=== PATIENT | female | born 1955 ===

== ENCOUNTER 2024-11-12 14:01 | Outpatient (REF) | payer SELFPAY ==
[2024-11-12 14:07] LABS: MANUAL DIFF FLAG NO
--- OUTSIDE RECORDS SUMMARY | 2024-11-12 14:09 | XMS_ITS | Encounter Summary ---
Author Organization [employer] Address [address] [facility] 7 [place] [address] Care Team Providers Care Inspector Balance Truing Name Role Phone Mag Short DO Primary Care Provider [phone] Reason for Referral * Home Health (Routine) - Closed Specialty Diagnoses / Procedures Referred By Francisca carr Referred To Contact Home Health Services Diagnoses Type 2 diabetes mellitus with diabetic polyneuropathy, without long-term current use of insulin (CMS/HCC) Proliferative diabetic retinopathy associated with type 2 diabetes mellitus, unspecified laterality, unspecified proliferative retinopathy type (CMS/HCC) Peripheral edema Chronic combined systolic and diastolic heart failure (CMS/HCC) Generalized weakness Hyperlipidemia, unspecified hyperlipidemia type Abnormality of gait and mobility Mag Short DO [address] [place] [address] Phone: tel: fax: Referral ID Status Reason Start Date Expiration Date V isits Requested Visits Authorized [id number] Closed Specialty Services Required 10/27/2024 10/27/[phone] Reason for Visit * Reason Comments Follow-up Encounter Details Date Type Department Care Team (Latest Contact Info) Description 10/27/2024 2:45 PM EST Telemedicine [facility] MEDICAL [address] [place] [address] Mag Short DO [address] [place] [address] Type 2 diabetes mellitus with diabetic polyneuropathy, without long-term current use of insulin (CMS/HCC) (Primary Dx); Proliferative diabetic retinopathy associated with type 2 diabetes mellitus, unspecified laterality, unspecified proliferative retinopathy type (CMS/HCC); Peripheral edema; Chronic combined systolic and diastolic heart failure ([facility]); Generalized weakness; B12 deficiency; Hyperlipidemia, unspecified hyperlipidemia type; Abnormality of gait and mobility; Nonintractable episodic headache, unspecified headache type; Polyneuropathy associated with underlying disease ([facility]); Paroxysmal atrial fibrillation ([facility]); Obesity, morbid ([facility]); Stage 3 chronic kidney disease, unspecified whether stage 3a or 3b CKD ([facility]) Social History Tobacco Use Types Packs/Day Years Used Date Smoking Tobacco: Former Cigarettes Passive Smoke Exposure: Never Smokeless Tobacco: Never Alcohol Use Standard Drinks/Week Comments Never 0 (1 standard drink = 0.6 oz pur e alcohol) Alcohol Answer Date Recorded How often do you have a drink containing alcohol ? 0 10/25/2023 How many drinks containing a lcohol do you have on a typical day when you are drinking? 0 10/25/2023 How often do you have six or more drinks on one occasion? 0 10/25/2023 Depression Answer Date Recorded Patient Health Questionnaire-9 Score 20 04/27/2024 Patient Health Questionnaire-9 Score 20 04/27/2024 Last PHQ-9: Questionnaire Data Not on file 0 04/27/2024 Housing Stability Answer Date Recorded What is your housing situation today? I have tone ramos 07/27/[address] you li ve. Do you have problems with any of the following? None of the above 07/27/2023 Food Insecurity Answer Date Recorded Within the past 12 months, y ou worried that your food would run out before you got money to buy more: Never True 07/27/2023 Within the past 12 months,th e food you bought just didn't last and you didn't have enough money to get more: Never True Transportation Answer Date Recorded In the past 12 months, has l ack of transportation kept you from medical appts, meetings, work or from getting things needed for daily living? No 07/27/2023 Intimate Partner Violence Answer Date R ecorded Within the last year, have y ou been afraid of your partner or ex-partner? 2 10/25/2023 Within the last year, have y ou been humiliated or emotionally abused in other ways by your partner or ex-partner? 2 Within the last year, have y ou been kicked, hit, slapped, or otherwise physically hurt by your partner or ex-partner? 2 10/25/2023 Within the last year, have y ou been raped or forced to have any kind of sexual activity by your partner or ex-partner? 2 10/25/2023 Utilities Answer Date Recorded In the past 12 months, has t he electric, gas, oil or water company threatened to shut off services in your home? No 07/27/2023 Depression Answer Date Recorded Patient Health Questionnaire-2 Score 5 04/27/2024 Comments Unknown Sex and Gender Information Value Date Recorded Sex Assigned at Female 06/10/2023 11:25 AM EDT Legal Sex Female 11:20 AM EDT Gender Identity Female 06/10/2023 11:25 AM EDT Sexual Orientation Straight 06/10/2023 11 :25 AM EDT documented as of this encounter Progress Notes * Mag Short DO - 10/27/2024 2:45 PM EST 10/27/24 Mila Aviles [id number] Patient Consents to Telehealth visit by: audio Pt advised of provider's credentials. Pt confirms they are located in [place] and are aware of HIPPA considerations. HPI: Mila Aviles is a 68 y.o. female here today by telehealth for Follow-up. Vomiting and Nausea - Vomiting for about two weeks, preceded by nausea - No fever or abdominal pain - felt unwell but did not vomit - Eating inconsistently due to fear of falling Fatigue and Weakness - Extremely tired and weak - No energy, feels tired for a long time - Feels like she just lays around all day and can't do anything - Afraid to go out due to fear of falling, has fallen a couple of times Breathing Difficulties - Difficulty breathing, especially when lying down - Awaiting CPAP, ordered over a year ago, with a follow-up scheduled for November 17 - Two sleep studies confirmed OG with the need for CPAP - Cough with foam production - Crackly sound in throat Headaches - Headaches have returned, previously frequent - Located on the back of the head, now more on the temples and forehead - Lasts quite a while - Associated with stuffy nose and sinus-like symptoms - Occurs a few times a week, approximately three days a week B12 Deficiency - History of B12 deficiency, unsure of current status - Body does not absorb B12 well Swelling - Swelling in one foot, leading to increased furosemide dosage to 40 mg a couple of weeks ago Social history - and son provide assistance with daily activities - Does not go out due to fear of falling Review of Symptoms: ROS negative except as noted in HPI Physical Exam: Physical Exam Neurological: Mental Status: She is alert and oriented to person, place, and time. Psychiatric: Speech: Speech normal. PERTINENT LABORATORY DATA: reviewed PERTINENT IMAGING: Reviewed ASSESSMENT AND PLAN Diagnosis Plan 1. Type 2 diabetes mellitus with diabetic polyneuropathy, without long-term current use of insulin ([facility]) Hemoglobin A1c Lipid Panel, Standard Hemoglobin A1c Lipid Panel, Standard Referral to Home Health Referral to Home Health 2. Proliferative diabetic retinopathy associated with type 2 diabetes mellitus, unspecified laterality, unspecified proliferative retinopathy type ([facility]) Referral to Home Health Referral to Home Health 3. Peripheral edema TSH with Reflex to Free T4 [[id number]] TSH with Reflex to Free T4 [132643] Referral to Home Health Referral to Home Health 4. Chronic combined systolic and diastolic heart failure ([facility]) B Type Natriuretic Peptide (BNP)107323 B Type Natriuretic Peptide (BNP) 066939 Referral to Home Health Referral to Home Health 5. Generalized weakness Referral to Home Health Referral to Home Health 6. B12 deficiency Vitamin B12 147539 Vitamin B12 269418 7. Hyperlipidemia, unspecified hyperlipidemia type Referral to Home Health Referral to Home Health 8. Abnormality of gait and mobility Referral to Home Health Referral to Home Health 9. Nonintractable episodic headache, unspecified headache type Sed Rate by Modified Westergren Sed Rate by Modified Westergren 10. Polyneuropathy associated with underlying disease ([facility]) 11. Paroxysmal atrial fibrillation ([facility]) 12. Obesity, morbid ([facility]) 13. Stage 3 chronic kidney disease, unspecified whether stage 3a or 3b CKD ([facility]) Assessment - Chronic dyspnea, likely related to sleep apnea. - Headaches potentially related to sleep apnea and possibly contributing to dyspnea. - Vomiting without fever or abdominal pain, with no clear infectious cause identified. - Generalized weakness and fatigue causing difficulty with transportation and activities of daily living. 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 A referral will be made to the nursing department to start this process. - Arrange for blood work to be completed as above, as well as previously ordered CBC and CMP. This can be done at the clinic or at [facility], depending on the patient's strength and ability to travel. - Schedule a follow-up appointment to further assess the patient's condition and progress. Consideration for a home visit may be made if necessary, although scheduling may be challenging. - Investigate and address the delay in obtaining the CPAP machine, which is crucial for managing the patient's sleep apnea and related symptoms. Mag Short DO [address] [address] documented in this encounter Plan of Treatment Scheduled Orders Name Type Priority Associated Diagnoses Orde r Schedule TSH with Reflex to Free T4 [[id number]] Lab Routine Peripheral edema Expected: 10/27/2024, Expires: 10/27/2025 B Type Natriuretic Peptide (BNP) 756570 Lab Routine Chronic combined systolic and diastolic heart failure ([facility]/HCC) Expected: 10/27/2024, Expires: 10/27/2025 Hemoglobin A1c Lab Routine Type 2 diabetes mellitus with diabetic polyneuropathy, without long-term current use of insulin ([facility]) Expected: 10/27/2024 (Approximate), Expires: 10/27/2025 Lipid Panel, Standard Lab Routine Type 2 diabetes mellitus with diabetic polyneuropathy, without long-term current use of insulin ([facility]) Expected: 10/27/2024, Expires: 10/27/2025 Vitamin B12 096676 Lab Routine B12 deficiency Expected: 10/27/2024, Expires: 10/27/2025 Sed Rate by Modified Westergren Lab Routine Nonintractable episodic headache, unspecified headache type Expected: 10/27/2024 (Approximate), Expires: 10/27/2025 Scheduled Referrals Name Type Priority Associated Diagnoses Orde r Schedule Referral to Home Health Outpatient Referral Routine Type 2 diabetes mellitus with diabetic polyneuropathy, without long-term current use of insulin ([facility]CC) Proliferative diabetic retinopathy associated with type 2 diabetes mellitus, unspecified laterality, unspecified proliferative retinopathy type (CMS/HCC) Peripheral edema Chronic combined systolic and diastolic heart failure (CMS/HCC) Generalized weakness Hyperlipidemia, unspecified hyperlipidemia type Abnormality of gait and mobility Expected: 10/27/2024 (Approximate), Expires: 10/27/2025 documented as of this encounter Visit Diagnoses Diagnosis Type 2 diabetes mellitus with diabetic polyneuropathy, without long-term current use of insulin (CMS/HCC)- Primary Proliferative diabetic retinopathy associated with type 2 diabetes mellitus, unspecified laterality, unspecified proliferative retinopathy type (CMS/HCC) Peripheral edema Edema Chronic combined systolic and diastolic heart failure (CMS/HCC) Chronic combined systolic and diastolic heart failure Generalized weakness B12 deficiency Hyperlipidemia, unspecified hyperlipidemia type Abnormality of gait and mobility Nonintractable episodic headache, unspecified headache type Polyneuropathy associated with underlying disease (CMS/HCC) Paroxysmal atrial fibrillation (CMS/HCC) Atrial fibrillation Obesity, morbid ([facility]) Morbid obesity Stage 3 chronic kidney disease, unspecified whether stage 3a or 3b CKD (CMS/HCC) documented in this encounter Additional Health Concerns Assessment Noted Time PHQ-9 Depression Total Score: 20 024 2:18 PM EDT documented as of this encounter Care Teams Inspector Balance Truing Relationship Specialty Start Date End Date Mag Short DO [address] [place] [id number] PCP - General Family Medicine 10/31/23 documented as of this encounter
--- OUTSIDE RECORDS SUMMARY | 2024-11-12 14:09 | XMS_ITS | Encounter Summary ---
Author Organization [employer] Address [address] [facility] 7 [place] [address] Care Team Providers Care Supervisor Title Name Role Phone Elia Shortra Primary Care Provider [phone] Reason for Visit * Reason Onset Date Comments [facility], blood work order 11/10/2024 Encounter Details Date Type Department Care Team (Late st Contact Info) Description 11/10/[address] [facility] MEDICAL [address] [place] [address] Mag Short DO [address] [place] [address] [facility], blood work order Social History Tobacco Use Types Packs/Day Years [...] the past 12 months, has t he [employer], oil or water [employer] threatened to shut off services in your home? No 07/27/2023 Depression Answer Date Recorded Patient Health Questionnaire-2 Score 5 04/27/2024 Comments Unknown Sex and Gender Information Value Date Recorded Sex Assigned at Female 06/10/2023 11:25 AM EDT Legal Sex Female 11:20 AM EDT Gender Identity Female 06/10/2023 11:25 AM EDT Sexual Orientation Straight 06/10/2023 11 :25 AM EDT documented as of this encounter Miscellaneous Notes * Telephone Encounter - Anna Carroll LPN - 11/10/2024 12:24 PM EST Lab orders faxed to number provided. * Telephone Encounter - Kala Arriaga - 11/10/2024 11:50 AM EST Tracie Ward) called stating patient had blood work ordered at last PCP appointment and states we can draw the blood at home and we just need to know which blood work was ordered. Tracie states she would like the correct blood work sent to [facility] fax number: [phone] Tracie is okay with leaving a detailed message on voicemail with any questions at phone number: [phone]. Thank you! documented in this encounter Plan of Treatment Not on file documented as of this encounter Visit Diagnoses Not on filedocumented in this encounter Additional Health Concerns Assessment Noted Time PHQ-9 Depression Total Score: 20 024 2:18 PM EDT documented as of this encounter Care Teams Supervisor Title Relationship Specialty Start Date End Date Mag Short DO [address] [place] [address] PCP - General Family Medicine 10/31/23 documented as of this encounter
--- OUTSIDE RECORDS SUMMARY | 2024-11-12 14:09 | XMS_ITS | Clinical Summary ---
Author Organization [employer] Address [address] [facility] [address] [place] [address] Care Team Providers Care Technical Director Name Role Phone Mag Short DO Primary Care Provider [phone] Allergies Active Allergy Reactions Criticality Noted Date Comments Penicillins Other Medium 07/03/2023 Childhood allergy Medications * This document contains information received from the source organization and may not represent a complete record from that organization. melatonin 3 MG tablet Take 3 mg by mouth at bedtime. Active diphenhydrAMINE-a cetaminophen (Tylenol PM Extra Strength) 25-500 MG per tablet Take 1 tablet by mouth at bedtime. Active Blood Pressure Monitoring (Blood Pressure Monitor/L Cuff) miscIndications:P matt hypertension Check blood pressure once daily in the morning 1 each Active carvedilol (Coreg) 12.5 MG tabletIndications :Chronic diastolic heart failure (CMS/HCC) Take 1 tablet (12.5 mg) by mouth 2 times daily. 60 tablet 11 Active Misc. Devices (Bed Wedge) miscIndications:C hronic diastolic heart failure (CMS/HCC) Use nightly to sleep with head at 30% incline. Duration 99. Active Misc. Devices (Home Style Bed Rails) miscIndications:C hronic diastolic heart failure (CMS/HCC),General ized weakness Use for assistance transferring to/from bed. Duration 99. Active Misc. Devices (Raised Toilet Seat/Lock & Arms) miscIndications:C hronic diastolic heart failure (CMS/HCC),General ized weakness Use on toilet to prevent falls. Duration 99 Active ipratropium (Atrovent) 0.03 % nasal sprayIndications: Nasal congestion Administer 1 spray into each nostril if needed at bedtime (nasal congestion). 30 mL Active sertraline (Zoloft) 50 MG tabletIndications :Mixed anxiety and depressive disorder Take 1 tablet (50 mg) by mouth Once per day. 30 tablet Active traZODone (Desyrel) 100 MG tabletIndications :Sleep disturbance Take 1 tablet (100 mg) by mouth if needed at bedtime for sleep. 30 tablet 024 2024 Active gabapentin (Neurontin) 300 MG capsuleIndication s:Polyneuropathy associated with underlying disease ([facility]) TAKE 1 CAPSULE(300 MG) BY MOUTH THREE TIMES DAILY 90 capsule 5 Active atorvastatin (Lipitor) 20 MG tabletIndications :Type 2 diabetes mellitus with diabetic polyneuropathy, without long-term current use of insulin ([facility]),Hyperli pidemia, unspecified hyperlipidemia type TAKE 1 TABLET(20 MG) BY MOUTH IN THE MORNING 30 tablet Active glipiZIDE XL (Glucotrol XL) 10 MG 24 hr tabletIndications :Type 2 diabetes mellitus with diabetic polyneuropathy, without long-term current use of insulin ([facility]) TAKE 1 TABLET(10 MG) BY MOUTH IN THE MORNING 30 tablet Active Jardiance 10 MGIndications:Typ e 2 diabetes mellitus with diabetic polyneuropathy, without long-term current use of insulin ([facility]) TAKE 1 TABLET BY MOUTH DAILY IN THE MORNING 30 tablet Active furosemide (Lasix) 20 MG tabletIndications :Peripheral edema Take 2 tablets (40 mg) by mouth Once per day. Since a couple weeks ago for increased swelling 60 tablet 025 2025 Active apixaban (Eliquis) 5 MG tabletIndications :Chronic diastolic heart failure (CMS/HCC) Take 1 tablet (5 mg) by mouth 2 times daily. 60 tablet 025 2025 Active apixaban (Eliquis) 5 MG tabletIndications :Chronic diastolic heart failure (CMS/HCC) Take 1 tablet (5 mg) by mouth 2 times daily. 60 tablet 024 2024 Discontinued(R eorder (will not trigger notification to Pharmacy)) furosemide (Lasix) 20 MG tabletIndications :Peripheral edema Take 1 tablet (20 mg) by mouth in the morning. 30 tablet 024 2024 Discontinued(R eorder (will not trigger notification to Pharmacy)) Jardiance 10 MGIndications:Typ e 2 diabetes mellitus with diabetic polyneuropathy, without long-term current use of insulin ([facility]) TAKE 1 TABLET BY MOUTH DAILY IN THE MORNING 30 tablet 024 2024 Discontinued glipiZIDE XL (Glucotrol XL) 5 MG 24 hr tabletIndications :Type 2 diabetes mellitus with diabetic polyneuropathy, without long-term current use of insulin ([facility]) Take 1 tablet (5 mg) by mouth Once per day. Take with 10 mg tablet to equal 15 mg daily 30 tablet 024 2024 Discontinued(M ed list cleanup (will not trigger notification to Pharmacy)) Active Problems Problem Noted Date Diagnosed Date Paroxysmal atrial fibrillation 06/13/2024 Proliferative diabetic retin opathy associated with type 2 diabetes mellitus 06/12/2024 Visual impairment 04/27/2024 Overview (06/13/2024): >>OVERVIEW FOR VISION CHANGES WRITTEN ON 04/27/2024 2:57 PM BY JOHN YAP Worsening vision over the past 6 mo with trouble seeing small things ie- reading/watching tv. No improvement with OTC reading glasses. Denies acute eye symptoms such as pain. Advised schedule with optho for full exam. OG (obstructive sleep apnea) 04/24/2024 Overview (04/24/2024): Images from the original note were not included. 01/21 sleep study: Assessment & Plan (04/27/2024 3:04 PM EDT): Sleep study + OG. Reports recent weight loss currently 184lb. Sleeps with head elevated 2 pillows. Reports nasal congestion noted in the mornings, discussed trial ipratropium IN. Referral placed for management of OG to [facility] sleep program. Pt prefers [place]. Currently treated with trazodone for insomnia, discuss w/ sleep medicine re- ongoing therapy may suggest weaning off. Weakness of both hands 12/21/2023 Partial thenar atrophy 12/21/2023 Assessment & Plan (12/21/2023 7:11 PM EDT): Thenar atrophy with weakness and numbness concerning for advancing carpal tunnel syndrome. Refer to hand surgery for evaluation Finger numbness 12/21/2023 Stage 3 chronic kidney disease 12/21/2023 Assessment & Plan (12/21/2023 7:15 PM EDT): Creatinine Date Value Ref Range Status 11/28/2023 1.5 (H) (0.5-1.0) MG/DL Final BUN Date Value Ref Range Status 11/28/2023 33 (H) (8-23) MG/DL Final eGFR Creatinine Date Value Ref Range Status 11/28/2023 38 ML/MIN/1.73 M2 Final Comment: Creatinine based estimated glomerular filtration (eGFR) in adults is calculated using the [employer] recommended 2020 CKD-EPI equation. Estimates GFR from serum creatinine, age and sex. Testing performed or reported by [facility], a Service of [facility], [address] [place] [address] Rogelio Vinson MD, Utilization Review Rn [facility]# [id number] Declining renal function Hyperlipidemia 10/25/2023 10/25/2023 Hypertension 10/25/2023 10/25/2023 Assessment & Plan (12/21/2023 7:05 PM EDT): Restart amlodipine at 5 mg daily. 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 BP is under good control. MS possibly contributed but not the prim reason for acute CHF few months ago. Mitral stenosis no clear symptoms, limited quality of life. IBAN showed mild to moderate MS severe MAC. No intervention is needed at this time. Left arm swelling rule out dvt, somewhat unlikely. v duplex ordered will fu in valve clinic in 1 year. should get annual TTE. Sleep disturbance 10/25/2023 Assessment & Plan (12/21/2023 7:10 PM EDT): Increase trazodone to 100mg daily Abnormality of gait and mobility 08/08/2023 Assessment & Plan (08/08/2023 4:46 PM EST): Mobility issues. Was using a rolled walker; today she has a cane and is having a very difficult time with ambulating. She is having difficulty maneuvering at home as well. There is concerns about being able to take care of herself/her taking care of her at home. We have reached out to [facility] as well. Peripheral edema 08/08/2023 Assessment & Plan (08/08/2023 4:48 PM EST): Last visit she had trace edema bilaterally. She now has 1+ edema bilaterally in her lower extremities. She states she knows it has gotten worse over the last month. I discussed with her that we will give her Lasix 20mg daily, but to take it early in the morning and to be careful and be close to a bathroom after she takes it to prevent falls. We discussed that if she has shortness of breath or the edema gets worse, she should probably go to the ER. Mixed anxiety and depressive disorder 07/03/2023 Overview (04/27/2024): MARTÍNEZ-7 Total Score: 13 (04/27/2024 2:29 PM) Patient Health Questionnaire-9 Score: 20 (04/27/2024 2:18 PM) Patient Health Questionnaire-2 Score: 5 (04/27/2024 2:18 PM) Endorses passive SI. Denies plan or previous action, denies HI. Is interested in establishing care with therapist. Currently on escitalopram 10mg daily no effect, denies SE. Previously treated with sertraline with some effect. Discussed stop escitalopram, and start trial of sertraline. Return precautions reviewed, pt aware of [facility] crisis line, if having worsening thoughts of SI, HI or thoughts of self harm seek emergency care right away. Follow up ~1 mo, med titration if indicated. Assessment & Plan (08/08/2023 4:43 PM EST): Continues. States the Lexapro is working, but only a little. We will increase her dosage to 20mg daily. States she is spending most of her days in bed. She has multiple complaints but she states she thinks they are just depression related. Her walker broke the other day, which has worsened her ability to be mobile more than usual. She is having difficulty just getting through the days. Denies SI/HI. States she just wants to feel better. Assessment & Plan (07/03/2023 4:03 PM EDT): Lengthy hx of depression and anxiety. Struggling with her son's recent depression diagnosis. She states she has been struggling with both depression and anxiety symptoms. Her PHQ9 score is 17. She is interested in getting on medications. She would not like to persue therapy at this point. We discussed the different medications and she has been on SSRIs at one point; she states they did work for awhile. Due to both depression and anxiety symptoms we will put her on Escitalopram 10mg daily. Type 2 diabetes mellitus wit h diabetic polyneuropathy, without long-term current use of insulin 07/03/2023 Assessment & Plan (12/21/2023 7:08 PM EDT): Lab Results Component Value Date HGBA1C 7.8 (H) 11/28/2023 On glipizide XL 10 mg daily and jardiance 10 mg daily with suboptimal glucose control (goal <7.5) Add GLP1 agonist Rybelsus 3mg daily with plan to increase to 7 mg daily after 30 days Assessment & Plan (07/03/2023 4:29 PM EDT): Had not been on antihypergylcemics in >4y. Was put back on Jardiance and Glipizide in the hospital. Unknown if they did an A1C in the hospital; we requested the pt to send the paperwork to us. We will continue to monitor. We are recommending her to check her BG readings at home. We ordered an A1C. Encounter to establish care 07/03/2023 Assessment & Plan (07/03/2023 4:15 PM EDT): Mila has not been to a PCP in >4y. She has a history of depression/anxiety, HTN, and DM with peripheral neuropathy who has not been treated in >4y. She was recently seen at [facility] in March when she was not feeling well and was diagnosed with hypertensive urgency; she was placed back on diabetic meds, HTN meds, and ASA. She has an ECHO scheduled for 08/28. She states she did very well after discharge from the hospital (overnight stay) for about 2w; since then, she states likely due to the depression, she has not been doing well. She is back to not eating well and not doing any activity. She would like to get better at both. She has not had a mammogram in >4y; we ordered one. She has never had a colonoscopy and would not like one. We discussed the risks of colon cancer and discussed Cologuard; she states she would think about it. She has not had a Pap smear >4y. We will do one in an upcoming visit. She does use Tylenol PM at night to sleep; we discussed the risks of using this nightly and that if she gets up in the middle of the night she could fall; she states she fell appx 2m ago in the middle of the night and does not remember any of it. She fell down a few stairs and was not injured. We discussed trying not to use it nightly and to have her cane or walker at the side of her bed if she does need to get up at night. We ordered labwork, including a CBC/CMP/A1C/lipid panel. We will see her back in 3m to follow up to her depression. Polyneuropathy associated with underlying diseas e 07/03/2023 Assessment & Plan (07/03/2023 4:31 PM EDT): Ongoing. States she was treated for it before when she was established with a PCP. She was previously on Gabapentin with good effect. She states it worked well and she would like to get back onto it. States she has pins and needles and sharp nerve type pains in her feet and sometimes her hands, feet > hands. We ordered Gabapentin 100mg tid. Encounter for screening mamm ogram for malignant neoplasm of breast 07/03/2023 Assessment & Plan (07/03/2023 4:24 PM EDT): Has not had a mammogram in >4y. States she has never had any abnormal findings. We ordered a mammogram. Encounters Date Type Department Care Team Description 11/10/[address] [address] Mag Short DO [facility], blood work order 11/10/[address] [address] Mag Short DO [facility], glucometer prescription 11/06/[address] [address] Mag Short DO ? blood tests 11/05/2024 Refill [facility] [address] [place] [address] Mag Short DO Chronic diastolic heart failure (CMS/HCC) 11/04/2024 Refill [facility] [address] [place] [address] Mag Short DO Peripheral edema 11/02/[address] [address] Mag Short DO [facility]NA 10/27/2024 2:45 PM EST Telemedicine [address] [address] Mag Short, Type 2 diabetes mellitus with diabetic polyneuropathy, without long-term current use of insulin ([facility]/HCC) (Primary Dx); Proliferative diabetic retinopathy associated with type 2 diabetes mellitus, unspecified laterality, unspecified proliferative retinopathy type (CMS/HCC); Peripheral edema; Chronic combined systolic and diastolic heart failure (CMS/HCC); Generalized weakness; B12 deficiency; Hyperlipidemia, unspecified hyperlipidemia type; Abnormality of gait and mobility; Nonintractable episodic headache, unspecified headache type; Polyneuropathy associated with underlying disease ([facility]); Paroxysmal atrial fibrillation ([facility]); Obesity, morbid ([facility]); Stage 3 chronic kidney disease, unspecified whether stage 3a or 3b CKD ([facility]/HCC) 10/27/[address] [address] Mag Short DO Needs [facility]NA 10/26/[address] [address] Mag Short DO Prior Authorization (Eliquis) 10/24/[address] [address] Mag Short DO Type 2 diabetes mellitus with diabetic polyneuropathy, without long-term current use of insulin ([facility]) 09/18/[address] [address] Mag Short DO Type 2 diabetes mellitus with diabetic polyneuropathy, without long-term current use of insulin ([facility]); Hyperlipidemia, unspecified hyperlipidemia type 08/21/[address] [address] Mag Short DO Polyneuropathy associated with underlying disease ([facility]) from Last 3 Months Family History Medical History Relation Name Comments Diabetic - blind [Other] Sister Relation Name Status Comments Sister Social History Tobacco Use Types Packs/Day Years Used Date Smoking Tobacco: Former Cigarettes Passive Smoke Exposure: Never Smokeless Tobacco: Never Tobacco Cessation:Counseling Given: Not Answered Alcohol Use Standard Drinks/Week Comments Never 0 [...] Orientation Straight 06/10/2023 11 :25 AM EDT Last Filed Vital Signs Vital Sign Reading Time Taken Comments Blood Pressure 132/64 06/12/2024 2:38 PM EDT Pulse 61 06/12/2024 2:38 PM EDT Temperature 36.8 ??C (98.3 ??F) 06/12/2024 2:38 PM ED T Respiratory Rate 24 08/08/2023 3:54 PM EST Oxygen Saturation 93% 11/29/2023 11:49 AM EST Inhaled Oxygen Concentration - - Weight 85.9 kg (189 lb 6.4 oz) 06/12/2024 2:38 P M EDT Height 152.4 cm (5') 06/12/2024 2:38 PM EDT Body Mass Index 36.99 06/12/2024 2:38 PM EDT Plan of Treatment Health Maintenance Due Date Last Done Comments CT Colonography 1954 Colonoscopy 1954 Colorectal Cancer Screening 1954 FIT DNA/Cologuard 1954 FIT 1954 FOBT 1954 Sigmoidoscopy 1954 Diabetes: Foot Exam 1964 Alcohol/Substance Use Screening 1966 Hepatitis C Screening 1972 DTaP/Tdap/Td Vaccines (1 - Tdap) 1973 Diabetes: Urine Protein Screening 1973 Pneumococcal Vaccine: 50+ Years (1 of 2 - PCV) 1973 Mammogram 1994 Zoster Vaccines (1 of 2) 2004 RSV Patients and Patients Aged 60 years or older (1 - Risk 60-74 years 1-dose series) 2014 COVID-19 Vaccine ( season) 2024 Influenza Vaccine (#1) 2024 SDOH Screening 07/03/2024 07/03/2023 Diabetes: Hemoglobin A1C 09/11/2024 06/12/2024, 02/2 05/2024 Depression Monitoring (PHQ-9) 10/28/2024 04/27/2024, 04/27/2024 Lipid Panel 11/27/2024 11/28/2023 Depression Screening 04/27/2025 04/27/2024, 04/27/20 24 Tobacco Screening 05/19/2025 05/19/2024 Eye Exam 06/24/2025 06/24/2024, 05/01, 05/19/2024, Additional history exists HIB Vaccines Aged Out No longer eligi ble based on patient's age to complete this topic HPV Vaccines Aged Out No longer eligi ble based on patient's age to complete this topic Hepatitis A Vaccines Aged Out No long er eligible based on patient's age to complete this topic Hepatitis B Vaccines Aged Out No long er eligible based on patient's age to complete this topic IPV Vaccines Aged Out No longer eligi ble based on patient's age to complete this topic Meningococcal Vaccine Aged Out No kiko rahat eligible based on patient's age to complete this topic RSV under 20 months Aged Out No longe r eligible based on patient's age to complete this topic Rotavirus Vaccines Aged Out No longer eligible based on patient's age to complete this topic Procedures Procedure Name Priority Date/Time Associated Diagnosis Comments AMB REFERRAL TO OPHTHALMOLOGY Routine 06/24/2024 Proliferative diabetic retinopathy of both eyes with macular edema associated with diabetes mellitus due to underlying condition ([facility]) POCT GLYCOSYLATED HEMOGLOBIN (HGB A1C) Routine 06/12/2024 3:00 PM EDT Type 2 diabetes mellitus with diabetic polyneuropathy, without long-term current use of insulin ([facility]) LIPID PANEL, STANDARD Routine 11/28/2023 1:45 PM EST Encounter to establish care from Last 3 Months or Most Recently Relevant to Health Maintenance Results * Referral to Ophthalmology (06/24/2024) Ozzy Caputo OD OUTPATIENT REFERRAL ORDERABLES Final Result * (ABNORMAL) POCT glycosylated hemoglobin (Hgb A1c) (06/12/2024 3:00 PM EDT) Hemoglobin A1C 8.3(A) 4.0 - 6.0 % Blood Capillary blood specimen / Unknown 06/12/2024 3:00 PM EDT Mag Short DO POINT OF CARE TEST ENTER/EDIT ORDERABLES Final Result * Lipid panel (11/28/2023 1:45 PM EST) Cholesterol, Total 182 (<200) MG/DL [facility] Triglyceride (mg/dL) in Serum/Plasma 101 (<150) MG/DL [facility] HDL Cholesterol 56 (>39) MG/DL [facility] LDL Cholesterol, Calculated 106 (0-130) MG/DL [facility] Non HDL Chol. (LDL+VLDL) 126 (<160) MG/DL [facility] Comment: Testing performed or reported by [facility], a Service of [facility], [address] [place] [id number] Rogelio Vinson MD, Utilization Review Rn [facility]# [id number] Blood Venous blood specimen / Unknown 11/28/2023 1:45 PM EST 11/28/2023 1:46 PM EST us Olivia [facility] LAB BLOOD ORDERABLES Final Resul t [address] [id number] from Last 3 Months or Most Recently Relevant to Health Maintenance Insurance [facility] MEDICARE REPLACEMENT Care Teams Technical Director Relationship Specialty Start Date End Date Mag Short DO [address] [place] [id number] PCP - General Family Medicine 10/31/23
--- OUTSIDE RECORDS SUMMARY | 2024-11-12 14:09 | XMS_ITS | Encounter Summary ---
Author Organization [employer] Address [address] [facility] [address] [place] [address] Care Team Providers Care Cosmetic Sales Assistant Name Role Phone Mag Short DO Primary Care Provider Reason for Visit * Reason Comments Med Refill Encounter Details Date Type Department Care Team (Late st Contact Info) Description 10/24/2024 Refill [facility] [address] [place] [address] Mag Short DO [address] [place], [place] [id number] Type 2 diabetes mellitus with diabetic polyneuropathy, without long-term current use of insulin ([facility]) Social History Tobacco Use Types Packs/Day Years [...] AM EDT documented as of this encounter Plan of Treatment Not on file documented as of this encounter Visit Diagnoses Diagnosis Type 2 diabetes mellitus with diabetic polyneuropathy, without long-term current use of insulin ([facility]) documented in this encounter Additional Health Concerns Assessment Noted Time PHQ-9 Depression Total Score: 20 024 2:18 PM EDT documented as of this encounter Care Teams Cosmetic Sales Assistant Relationship Specialty Start Date End Date Mag Short DO [address] [place] [address] PCP - General Family Medicine 10/31/23 documented as of this encounter
--- OUTSIDE RECORDS SUMMARY | 2024-11-12 14:09 | XMS_ITS | Encounter Summary ---
Author Organization [employer] Address [address] [facility] 7 [place] [address] Care Team Providers Care Adjuster Piano Action Name Role Phone Mag Short DO Primary Care Provider [phone] Reason for Visit * Reason Onset Date Comments VNA 11/02/2024 Encounter Details Date Type Department Care Team (Late st Contact Info) Description 11/02/[address] [facility] [address] [place], [place] [id number] Mag Short DO [address] [place] [address] VNA Social History Tobacco Use Types Packs/Day Years [...] the past 12 months, has t he [employer], [employer], oil or water [employer] threatened to shut off services in your [...] encounter Miscellaneous Notes * Telephone Encounter - Kavita Mckeon LPN - 11/06/2024 10:37 AM EST No call backs from Deny. Encounter to be closed. * Telephone Encounter - Anna Carroll LPN - 11/05/2024 10:29 AM EST Left message for Deny to call back. * Telephone Encounter - Anna Carroll LPN - 11/03/2024 10:20 AM EST Left message for Deny to call back. * Telephone Encounter - Anna Carroll LPN - 11/02/2024 2:19 PM EST Left message for Deny to call back. * Telephone Encounter - Kala Arriaga - 11/02/2024 11:14 AM EST Deny from [facility] called for Anna regarding the faxed lab orders. Deny stated she isn't in the office at the moment but can check if they received the lab orders. Deny also has a follow up question about the lab orders. Deny would like a call back at [phone]. * Telephone Encounter - Anna Carroll LPN - 11/02/2024 9:48 AM EST Left message for Deny at [facility] to call back. Lab orders faxed as requested. * Telephone Encounter - Nuha Bennett - 11/02/2024 9:20 AM EST [facility] called regarding the patient. Home care referral was received. Please call back with verbal orders for home care 2 times a week for 2 weeks and 1 time a week for 7 weeks. Please fax over lab orders as patient is having a hard time getting to the lab so vna will draw when they go out to see the patient. Fax number [phone] documented in this encounter Plan of Treatment Not on file documented as of this encounter Visit Diagnoses Not on filedocumented in this encounter Additional Health Concerns Assessment Noted Time PHQ-9 Depression Total Score: 20 024 2:18 PM EDT documented as of this encounter Care Teams Adjuster Piano Action Relationship Specialty Start Date End Date Mag Short DO [address] [place] [address] PCP - General Family Medicine 10/31/23 documented as of this encounter
--- OUTSIDE RECORDS SUMMARY | 2024-11-12 14:09 | XMS_ITS | Encounter Summary ---
Author Organization [employer] Address [address] [facility] 7t [place] [address] Care Team Providers Care Coat Feller Name Role Phone Mag Short DO Primary Care Provider [phone] Reason for Visit * Reason Onset Date Comments Med Refill 11/05/2024 Encounter Details Date Type Department Care Team (Late st Contact Info) Description 11/05/2024 Refill Adrianna [facility] [address] [place] [address] Mag Short DO [address] [place] [address] Chronic diastolic heart failure (CMS/HCC) Social History Tobacco Use Types Packs/Day Years [...] encounter Miscellaneous Notes * Telephone Encounter - Alejandra Alonzo - 11/05/2024 11:48 AM EST Patient's left requesting a refill on Eliquis 5 mg [facility] documented in this encounter Plan of Treatment Not on file documented as of this encounter Visit Diagnoses Diagnosis Chronic diastolic heart failure (CMS/HCC) Chronic diastolic heart failure documented in this encounter Additional Health Concerns Assessment Noted Time PHQ-9 Depression Total Score: 20 07/29/2 024 2:18 PM EDT documented as of this encounter Care Teams Coat Feller Relationship Specialty Start Date End Date Mag Short DO [address] [place] [address] PCP - General Family Medicine 10/31/23 documented as of this encounter
--- OUTSIDE RECORDS SUMMARY | 2024-11-12 14:09 | XMS_ITS | Encounter Summary ---
Author Organization [employer] Address [address] [facility] 7t [place] [address] Care Team Providers Care Artificial Flowers Starcher Name Role Phone Mag Short DO Primary Care Provider [phone] Reason for Visit * Reason Onset Date Comments VM for refills 08/01/2023 Encounter Details Date Type Department Care Team (Late st Contact Info) Description 08/01/2023 Telephone [facility] [address] [place] [address] lOivia James PA VM for refills Social History Tobacco Use Types Packs/Day Years Used Date Smoking Tobacco: Never Alcohol Use Standard Drinks/Week Comments Never 0 (1 standard drink = 0.6 oz pur e alcohol) Depression Answer Date Recorded Patient Health Questionnaire-9 Score 17 07/03/2023 Housing Stability Answer Date Recorded What is [...] things needed for daily living? No 07/27/2023 Utilities Answer Date Recorded In the past 12 months, has t he electric, gas, oil or water company threatened to shut off services in your home? No 07/27/2023 Depression Answer Date Recorded Patient Health Questionnaire-2 Score 4 07/03/2023 Comments Unknown Sex and Gender Information Value Date Recorded Sex Assigned at Female 06/10/2023 11:25 AM EDT Legal Sex Female 11:20 AM EDT Gender Identity Female 06/10/2023 11:25 AM EDT Sexual Orientation Straight 06/10/2023 11 :25 AM EDT documented as of this encounter Miscellaneous Notes * Telephone Encounter - SYLWIA Serrano - 08/01/2023 2:41 PM EDT Queued up all 6 meds to to send to pharmacy listed. TY * Telephone Encounter - Jaswant Jean - 08/01/2023 2:12 PM EDT Patient is calling for refills on her medications. Patient states she is almost out of them. glipiZIDE XL (Glucotrol XL) 10 MG 24 hr tablet Aspirin Low Dose 81 MG EC tablet losartan (Cozaar) 50 MG tablet Jardiance 10 MG atorvastatin (Lipitor) 40 MG tablet amLODIPine (Norvasc) 10 MG tablet [id number] [id number] * Telephone Encounter - Shelley Posadas - 08/01/2023 10:23 AM EDT Patient called and left director corporate communications center [facility] for refills and did not list them so I called her to get them. documented in this encounter Plan of Treatment Not on file documented as of this encounter Visit Diagnoses Not on filedocumented in this encounter Additional Health Concerns Assessment Noted Time PHQ-9 Depression Total Score: 17 023 3:06 PM EDT documented as of this encounter Care Teams Artificial Flowers Starcher Relationship Specialty Start Date End Date Mag Short DO [address] [place] [address] PCP - General Family Medicine 10/31/23 documented as of this encounter
--- OUTSIDE RECORDS SUMMARY | 2024-11-12 14:09 | XMS_ITS | Encounter Summary ---
Author Organization [employer] Address 75 [facility] 7 [place] [address] Care Team Providers Care Supervisor Assembly And Packing Name Role Phone Mag Short DO Primary Care Provider [phone] Reason for Visit * Reason Onset Date Comments ? blood tests 11/06/2024 Encounter Details Date Type Department Care Team (Late st Contact Info) Description 11/06/[address] [facility] [address] [place], [place] [phone] Mag Short DO [address] [place], [place] [phone] ? blood tests Social History Tobacco Use Types Packs/Day Years [...] the past 12 months, has t he [employer], gas, oil or water [employer] threatened to shut off services in your [...] encounter Miscellaneous Notes * Telephone Encounter - Kala Arriaga - 11/06/2024 3:15 PM EST Orestes (Sylvia ORTA) called stating he would like a call back regarding some blood tests that we were supposed to do, the patient does not know which blood tests and we don't have any record of the tests. Orestes states he would also like to discuss another issue regarding blood sugar and glucometer as well. Orestes would like a call back at phone number: [phone]. Okay to leave detailed message. Thank you! documented in this encounter Plan of Treatment Not on file documented as of this encounter Visit Diagnoses Not on filedocumented in this encounter Additional Health Concerns Assessment Noted Time PHQ-9 Depression Total Score: 20 024 2:18 PM EDT documented as of this encounter Care Teams Supervisor Assembly And Packing Relationship Specialty Start Date End Date Mag Short DO [address] [place] [address] PCP - General Family Medicine 10/31/23 documented as of this encounter
--- OUTSIDE RECORDS SUMMARY | 2024-11-12 14:09 | XMS_ITS | Encounter Summary ---
Author Organization [employer] Address [address] [facility] 7 [place] [address] Care Team Providers Care Administrative Assistant Receptionist Name Role Phone Mag Short DO Primary Care Provider [phone] Reason for Referral * Imaging (Routine) - Closed Specialty Diagnoses / Procedures Referred By Francisca carr Referred To Contact Diagnoses Obstructive sleep apnea Ankit-Morales respiration Procedures Polysomnography Mag Short DO [address] [place] [address] Phone: tel: [facility] Phone: tel: fax: Referral ID Status Reason Start Date Expiration Date Visits Re quested Visits Authorized [id number] Closed 12/09/2023 12/08/2024 1 1 Encounter Details Date Type Department Care Team (Late st Contact Info) Description 12/03/[address] [facility] MED[facility] [address] [place] [address] Mag Short DO [address] [place] [address] Obstructive sleep apnea (Primary Dx); Pulmonary hypertension (CMS/HCC); Sleep disturbance; Ankit-Morales respiration Social History Tobacco Use Types Packs/Day Years Used Date Smoking Tobacco: Never Passive Smoke Exposure: Never Smokeless Tobacco: Never [...] Date Recorded Patient Health Questionnaire-9 Score 17 08/08/2023 Patient Health Questionnaire-9 Score 17 08/08/2023 Last PHQ-9: Questionnaire Data Not on file 1 10/08/2022 Housing Stability Answer Date Recorded What is [...] Date Recorded Patient Health Questionnaire-2 Score 5 08/08/2023 Comments Unknown Sex and Gender Information Value Date Recorded Sex Assigned at Female 06/10/2023 11:25 AM EDT Legal Sex Female 11:20 AM EDT Gender Identity Female 06/10/2023 11:25 AM EDT Sexual Orientation Straight 06/10/2023 11 :25 AM EDT documented as of this encounter Plan of Treatment Not on file documented as of this encounter Procedures Procedure Name Priority Date/Time Associated Diagnosis Comments POLYSOMNOGRAM Routine 11/27/2023 Pulmonary hypertension (CMS/HCC) Sleep disturbance documented in this encounter Results * Polysomnography (01/19/2024) [facility] ORDERABLES Final Result * Polysomnography (11/27/2023) [facility] ORDERABLES Final Result documented in this encounter Visit Diagnoses Diagnosis Obstructive sleep apnea- Primary Obstructive sleep apnea (adult) (pediatric) Pulmonary hypertension (CMS/HCC) Other chronic pulmonary heart diseases Sleep disturbance Unspecified sleep disturbance Ankit-Morales respiration documented in this encounter Additional Health Concerns Assessment Noted Time PHQ-9 Depression Total Score: 17 023 4:01 PM EST documented as of this encounter Care Teams Administrative Assistant Receptionist Relationship Specialty Start Date End Date Mag Short DO [address] [place] [address] PCP - General Family Medicine 10/31/23 documented as of this encounter
--- OUTSIDE RECORDS SUMMARY | 2024-11-12 14:09 | XMS_ITS | Clinical Summary ---
Author Organization [facility], Address [address] [place] [phone] Phone Care Team Providers Care Supervisor Typesetting Name Role Phone Shon Villafana MD Primary Care Provider [phone] Allergies Active Allergy Reactions Criticality Noted Date Comments Penicillin G 04/08/2024 Medications gabapentin (Neurontin) 300 MG capsule Take 300 mg by mouth 10/06/2023 Active furosemide (LASIX) 40 MG tablet Take 40 mg by mouth 1 (one) time each day Active Jardiance 10 MG tablet Take by mouth every morning Active diphenhydrAMINE -acetaminophen (Tylenol PM Extra Strength) 25-500 MG per tablet Take 1 tablet by mouth 10/06/2023 Active Coreg 6.25 MG tablet Take 6.25 mg by mouth 12/26/2023 Active atorvastatin (LIPITOR) 20 MG tablet 01/21/2024 Active Eliquis 5 MG tablet 04/04/2024 Active Active Problems Problem Noted Date Diagnosed Date Type 2 diabetes mellitus 04/08/2024 Prolapsed lumbar intervertebral disc 04/08/2024 Postherpetic neuralgia 04/08/2024 Osteoarthritis 04/08/2024 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 Hypertension 04/08/2024 Hyperlipidemia 04/08/2024 Depressive disorder 04/08/2024 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 Chronic back pain 04/08/2024 Social History Tobacco Use Types Packs/Day Years Used Date Smoking Tobacco: Never Assessed Comments Unknown Sex and Gender Information Value Date Recorded Sex Assigned at Not on file Legal Sex Female 10:36 AM EDT Gender Identity Not on file Sexual Orientation Not on file Plan of Treatment Health Maintenance Due Date Last Done Comments Breast Cancer Screening 1955 Colorectal Cancer Screening: Annual FOBT 12/15/2003 Colorectal Cancer Screening: Colonoscopy 12/15/2003 Colorectal Cancer Screening: Sigmoidoscopy 12/15/2003 Pneumococcal Vaccine: 65+ Ye ars (1 of 1 - PCV) 12/15/2019 Diabetes: Hemoglobin A1C 02/11/2024 Diabetes: Ophthalmology Exam 02/11/2024 Diabetes: Pedal Pulse Checked 02/11/2024 Diabetes: Sensory Foot Exam 02/11/2024 Diabetes: Visual Foot Exam 02/11/2024 Influenza Vaccine (#1) 2024 Hepatitis B Vaccine Aged Out No longe r eligible based on patient's age to complete this topic Insurance MEDICARE MEDICARE Care Teams Supervisor Typesetting Relationship Specialty Start Date End Date Shon Villafana MD [address] PCP - General Internal Medicine 05/29/23
--- OUTSIDE RECORDS SUMMARY | 2024-11-12 14:09 | XMS_ITS | Encounter Summary ---
Author Organization [employer] Address 75 [facility] 7t [place] [address] Care Team Providers Care Utility Tech Name Role Phone Mag Short DO Primary Care Provider [phone] Encounter Details Date Type Department Care Team (Late st Contact Info) Description 11/04/2024 Katie Rodas [facility] [address] [place] [address] Mag Short DO [address] [place] [address] Peripheral edema Social History Tobacco Use Types Packs/Day Years [...] the past 12 months, has t he [employer], [employer], oil or water company threatened to shut [...] encounter Miscellaneous Notes * Telephone Encounter - Collins Pedraza CMA - 11/04/2024 12:53 PM EST Pt called and left a message requesting a refill on their furosemide (Lasix) 20 MG tablet Medication entered, to provider for approval and sending. documented in this encounter Plan of Treatment Not on file documented as of this encounter Visit Diagnoses Diagnosis Peripheral edema Edema documented in this encounter Additional Health Concerns Assessment Noted Time PHQ-9 Depression Total Score: 20 024 2:18 PM EDT documented as of this encounter Care Teams Utility Tech Relationship Specialty Start Date End Date Mag Short DO [address] [place] [address] PCP - General Family Medicine 10/31/23 documented as of this encounter
--- OUTSIDE RECORDS SUMMARY | 2024-11-12 14:09 | XMS_ITS | Encounter Summary ---
Author Organization [employer] Address 75 [facility] 7 [place] [address] Care Team Providers Care Envelope Machine Operator Name Role Phone Elia Shortra Primary Care Provider [phone] Reason for Visit * Reason Onset Date Comments Needs VNA 10/27/2024 Encounter Details Date Type Department Care Team (Late st Contact Info) Description 10/27/2024 Telephone [facility] [address] [place] [address] Mag Short DO [address] [place] [address] Needs VNA Social History Tobacco Use Types Packs/Day [...] the past 12 months, has t he [employer], gas, oil or water [employer] threatened to shut off services in your [...] Telephone Encounter - Anna Carroll LPN - 10/28/2024 2:21 PM EST Referral, visit note and demographics faxed as requested. * Telephone Encounter - Mag Short DO - 10/28/2024 2:00 PM EST Visit note completed * Telephone Encounter - Anna Carroll LPN - 10/28/2024 12:36 PM EST Spoke with Lesa at [facility]. They are taking new pt's. They do provide services in [place] and they do take pt's insurance. They will need the referral, note from 10/27 and pt demographics faxed to [phone]. TE to Dr Short. Please complete note from 10/27. * Telephone Encounter - Anna Carroll LPN - 10/28/2024 12:31 PM EST Call placed to [facility]. They are currently at capacity and not taking new pts. * Telephone Encounter - Kavita Mckeon LPN - 10/27/2024 4:04 PM EST Images from the original note were not included. DO Gene Sosa [facility], PT/OT - referral in chart documented in this encounter Plan of Treatment Not on file documented as of this encounter Visit Diagnoses Not on filedocumented in this encounter Additional Health Concerns Assessment Noted Time PHQ-9 Depression Total Score: 20 024 2:18 PM EDT documented as of this encounter Care Teams Envelope Machine Operator Relationship Specialty Start Date End Date Mag Short DO [address] [place] [address] PCP - General Family Medicine 10/31/23 documented as of this encounter
--- OUTSIDE RECORDS SUMMARY | 2024-11-12 14:09 | XMS_ITS | Encounter Summary ---
Author Organization [employer] Address 75 [facility] 7 [place] [address] Care Team Providers Care Fisher Diving Name Role Phone Mag Short DO Primary Care Provider [phone] Reason for Visit * Reason Onset Date Comments VNA, glucometer prescription 11/10/2024 Encounter Details Date Type Department Care Team (Late st Contact Info) Description 11/10/[address] [facility] MED[facility] [address] [place] [address] Mag Short DO [address] [place] [address] VNA, glucometer prescription Social History Tobacco Use Types Packs/Day Years [...] the past 12 months, has t he [employer], [employer], oil or water [employer] threatened to shut off services in your [...] Telephone Encounter - Kala Arriaga - 11/10/2024 11:40 AM EST Tracie (MARIVEL Ward) called stating patient has been vomiting for a couple days and if you could geeta this as high priority. Tracie states she would like PCP to send a prescription for a glucometer with strips to the following pharmacy so they can check blood sugar[id number] [place] - [address] Tracie is okay with leaving a detailed message on voicemail with any questions at phone number: [phone]. Thank you! documented in this encounter Plan of Treatment Not on file documented as of this encounter Visit Diagnoses Not on filedocumented in this encounter Additional Health Concerns Assessment Noted Time PHQ-9 Depression Total Score: 20 024 2:18 PM EDT documented as of this encounter Care Teams Fisher Diving Relationship Specialty Start Date End Date Mag Short DO [address] [place] [address] PCP - General Family Medicine 10/31/23 documented as of this encounter
--- OUTSIDE RECORDS SUMMARY | 2024-11-12 14:09 | XMS_ITS | Encounter Summary ---
Author Organization [employer] Address 75 [facility] 7t [place] [address] Care Team Providers Care Risk And Insurance Consultant Name Role Phone Mag Short DO Primary Care Provider [phone] Encounter Details Date Type Department Care Team (Late st Contact Info) Description 12/17/2023 Orders Only [facility] [address] [place] [address] Mag Short DO [address] [place] [address] Obstructive sleep apnea; Ankit-Morales respiration Social History Tobacco Use Types [...] the past 12 months, has t he [employer], [employer], oil or water company threatened to shut [...] Priority Date/Time Associated Diagnosis Comments POLYSOMNOGRAM Routine 01/19/2024 Obstructive sleep apnea Ankit-Morales respiration TRANSTHORACIC ECHO (TTE) COMPLETE Routine 12/09/2023 9:10 AM EDT US ABDOMEN, RIGHT UPPER QUADRANT Routine 12/09/2023 9:09 AM EDT ECG 12-LEAD Routine 12/08/2023 9:[address] ABDOMEN PELVIS W CONTRAST Routine 12/08/2023 9:[address] CERVICAL SPINE WO CONTRAST Routine 12/08/2023 9:[address] HEAD WO CONTRAST Routine 12/08/2023 9 :06 AM EDT documented in this encounter Results * Polysomnography (01/19/2024) us Mag Short DO [facility] ORDERABLES Final Result * Transthoracic echo (TTE) complete (12/09/2023 9:10 AM EDT) us Mag Short DO CV ECHO PROCEDURES Final Resul t * US ABDOMEN, RIGHT UPPER QUADRANT (12/09/2023 9:09 AM EDT) Anatomical Region Laterality Modality Abdomen Ultrasound us Mag Short DO IMG US PROCEDURES Final Result * ECG 12 lead (12/08/2023 9:11 AM EDT) us Mag Short DO ECG ORDERABLES Final Result * CT Abdomen Pelvis w/ Contrast (12/08/2023 9:08 AM EDT) Anatomical Region Laterality Modality Body, Pelvis, Abdomen Computed T omography us Mag Short DO IMG CT PROCEDURES Final Result * CT Cervical Spine w/o Contrast (12/08/2023 9:07 AM EDT) Anatomical Region Laterality Modality Spine, C-spine Computed Tomogra phy Result Pastor us Mag Short DO IMG CT PROCEDURES Final Result * CT Head w/o Contrast (12/08/2023 9:06 AM EDT) Anatomical Region Laterality Modality Head, Neck Computed Tomogra phy us Mag Short DO IMG CT PROCEDURES Final Result documented in this encounter Visit Diagnoses Diagnosis Obstructive sleep apnea Obstructive sleep apnea (adult) (pediatric) Ankit-Morales respiration documented in this encounter Additional Health Concerns Assessment Noted Time PHQ-9 Depression Total Score: 17 023 4:01 PM EST documented as of this encounter Care Teams Risk And Insurance Consultant Relationship Specialty Start Date End Date Han DO Mag [address] [place] [address] PCP - General Family Medicine 2/1/24 documented as of this encounter
--- OUTSIDE RECORDS SUMMARY | 2024-11-12 14:09 | XMS_ITS | Encounter Summary ---
Author Organization [employer] Address [address] [facility] 7t [place] [address] Care Team Providers Care Firer Automatic Stoker Name Role Phone Mag Short DO Primary Care Provider [phone] Encounter Details Date Type Department Care Team (Late st Contact Info) Description 10/16/2023 Orders Only [facility] [address] [place] [address] Olivia James PA Social History Tobacco Use Types Packs/Day Years [...] Procedure Name Priority Date/Time Associated Diagnosis Comments TRANSESOPHAGEAL ECHO (IBAN) Routine 10/08/2023 VASC US RENAL ARTERY DUPLEX LIMITED Routine 10/02/2023 ECG 12-LEAD Routine 10/02/2023 CT CHEST WO CONTRAST Routine 09/30/2023 US RETROPERITONEUM Routine 09/28/2023 TRANSTHORACIC ECHO (TTE) COMPLETE Routine 09/27/2023 US DOPPLER EXT LOWER VENOUS LEFT Routine 09/25/2023 CT CHEST PULMONARY EMBOLISM W CONTRAST Routine 09/25/2023 documented in this encounter Results * Transesophageal echo (IBAN) (10/08/2023) us Olivia SHAH CV ECHO PROCEDURES Edited Result - Final * VASC US Renal Artery Duplex Limited (10/02/2023) us Olivia SHAH CV VASCULAR PROCEDURES Edited Re sult - Final * ECG 12 lead (10/02/2023) us Olivia SHAH ECG ORDERABLES Edited Result - Final * CT Chest w/o Contrast (09/30/2023) Anatomical Region Laterality Modality Body, Chest Computed Tomogra phy us Olivia SHAH IMG CT PROCEDURES Edited Result - Final * US Retroperitoneum (09/28/2023) Anatomical Region Laterality Modality Abdomen Ultrasound us Olivia SHAH IMG US PROCEDURES Edited Result - Final * Transthoracic echo (TTE) complete (09/27/2023) us Olivia SHAH CV ECHO PROCEDURES Edited Result - Final * CT Chest Pulmonary Embolism w/ Contrast (09/25/2023) Anatomical Region Laterality Modality Body, Chest Computed Tomogra phy us Olivia SHAH IMG CT PROCEDURES Edited Result - Final * US DOPPLER EXT LOWER VENOUS LEFT (09/25/2023) Anatomical Region Laterality Modality Body Ultrasound us Olivia SHAH IMG US PROCEDURES Edited Result - Final documented in this encounter Visit Diagnoses Not on filedocumented in this encounter Additional Health Concerns Assessment Noted Time PHQ-9 Depression Total Score: 17 023 4:01 PM EST documented as of this encounter Care Teams Firer Automatic Stoker Relationship Specialty Start Date End Date Mag Short DO [address] [place] [id number] PCP - General Family Medicine 10/31/23 documented as of this encounter
--- OUTSIDE RECORDS SUMMARY | 2024-11-12 14:09 | XMS_ITS | Encounter Summary ---
Author Organization [employer] Address 75 [facility] 7 [place] [address] Care Team Providers Care Conveyor Belt Operator Name Role Phone Elia Shortra Primary Care Provider [phone] Reason for Visit * Reason Onset Date Comments Prior Authorization 10/26/2024 Hal Encounter Details Date Type Department Care Team (Late st Contact Info) Description 10/26/2024 Telephone [facility] MEDICAL [address] [place] [address] Mag Short DO [address] [place] [address] Prior Authorization (Hal) Social History Tobacco Use Types Packs/Day Years [...] the past 12 months, has t he [employer], gas, oil or water [facility] threatened to shut off services in your [...] encounter Miscellaneous Notes * Telephone Encounter - Aubree Pedraza LPN - 10/26/2024 10:38 AM EST Outcome Additional Information Required This medication or product is on your plan's list of covered drugs. Prior authorization is not required at this time. Eliquis documented in this encounter Plan of Treatment Not on file documented as of this encounter Visit Diagnoses Not on filedocumented in this encounter Additional Health Concerns Assessment Noted Time PHQ-9 Depression Total Score: 20 024 2:18 PM EDT documented as of this encounter Care Teams Conveyor Belt Operator Relationship Specialty Start Date End Date Mag Short DO [address] [place] [address] PCP - General Family Medicine 10/31/23 documented as of this encounter
[2024-11-12 14:16] LABS: Basophils Percent Auto 0.5 % (0-2); Eosinophils Absolute Auto 0.3 X10*3/uL (0.0-0.4); Eosinophils Percent Auto 4.4 % (0-4); Hematocrit 34.7 % (37.0-47.0); Hemoglobin 10.7 g/dl (12.0-16.0); Imm Gran Abs Auto 0.02 X10*3/uL (0.00-0.03); Imm Gran Pct Auto 0.4 % (0.0-0.4); Lymphocytes Absolute Auto 0.9 X10*3/uL (1.2-4.9); Lymphocytes Percent Auto 15.9 % (20-40); Mean Corpuscular HGB Conc 30.8 g/dl (31.0-35.0); Mean Corpuscular Hemoglobin 26.5 pg (27.0-33.0); Mean Corpuscular Volume 85.9 fL (80.0-98.0); Monocytes Absolute Auto 0.3 X10*3/uL (0.1-1.2); Neutrophils Absolute Auto 4.2 x10*3/uL (2.0-8.3); Neutrophils Percent Auto 72.8 % (45-73); Platelet Count 241 X10*3/uL (160-400); Red Blood Count 4.04 X10*6/uL (4.20-5.50); Red Cell Distribution Width 17.8 % (11.0-16.0); White Blood Count 5.7 X10*3/uL (4.8-10.8)
[2024-11-12 14:24] LABS: Estimated Average Glucose 140 mg/dL; Hemoglobin A1C 133.4983 umol/L; Hemoglobin A1c % 6.5 % (<6.0)
[2024-11-12 14:31] LABS: B Type Natriuretic Peptide 692 pg/mL (<100)
[2024-11-12 14:57] LABS: Alanine Aminotransferase 7 U/L (0-31); Albumin Level 2.5 g/dL (3.5-5.0); Alkaline Phosphatase 80 U/L (39-117); Anion Gap 9 (12-20); Aspartate Amino Transferase 21 U/L (5-31); Bilirubin Total 0.2 mg/dL (0.0-1.0); Blood Urea Nitrogen 32 mg/dL (9-16); Calcium 8.5 mg/dL (8.4-10.2); Carbon Dioxide 32 mmol/L (22-29); Chloride 109 mmol/L (96-108); Cholesterol 133 mg/dL (<200); Estimated Glomerular Filt Rate 27; Glucose Random 143 mg/dL (60-115); HDL Cholesterol 53 mg/dL (>40); LDL Cholesterol Calculated 59 mg/dL (<100); Potassium 5.1 mmol/L (3.3-5.1); Sodium 145 mmol/L (135-145); Total Protein 6.1 g/dL (6.5-8.0); Triglycerides 105 mg/dL (<150)
[2024-11-12 15:05] LABS: Erythrocyte Sedimentation Rate 38 MM/HR (0-20)
[2024-11-12 15:12] LABS: TSH reflex Free T4 1.04 uIU/mL (0.32-4.0)
[2024-11-12 15:18] LABS: Vitamin B12 336 pg/mL (200-900)
== END 2024-11-12 14:02 | disposition home or self-care (01) ==
LOC: HO.HVNA 14:01
PROVIDERS: Visit Provider Family Medicine
DX: D64.9 Anemia, unspecified (principal); Z13.1 Encounter for screening for diabetes mellitus; Z13.6 Encounter for screening for cardiovascular disorders
CPT/HCPCS: 36415; 80053; 80061; 82607; 83036; 83880; 84443; 85025; 85652

== ENCOUNTER 2025-03-11 12:36 | Outpatient (REF) | payer MEDICARE, SELFPAY ==
[2025-03-11 13:47] LABS: Anion Gap 10 (12-20); Blood Urea Nitrogen 51 mg/dL (9-16); Calcium 8.4 mg/dL (8.4-10.2); Carbon Dioxide 29 mmol/L (22-29); Chloride 107 mmol/L (96-108); Estimated Glomerular Filt Rate 28; Glucose Random 151 mg/dL (60-115); Potassium 4.7 mmol/L (3.3-5.1); Sodium 141 mmol/L (135-145)
--- OUTSIDE RECORDS SUMMARY | 2025-03-11 14:29 | XMS_ITS | Encounter Summary ---
Author Organization [employer] Address [address] [facility] 7t [place] [address] Care Team Providers Care Automotive Starter Repairer Name Role Phone Mag Short Primary Care Provider [phone] Reason for Visit * Reason Onset Date Comments hospital discharge, obtain hospital records 01/29 Encounter Details Date Type Department Care Team ([facility] st Contact Info) Description 02/24/2025 Telephone [facility] [address] [place], [place] [phone] King Mag, DO [address] [place], [place] [phone] hospital discharge, obtain hospital records Social History Tobacco Use Types Packs/Day Years [...] the past 12 months, has t he [employer], gas, oil or water [email or web address] threatened to shut off services in your [...] * Telephone Encounter - Kala Arriaga - 02/24/2025 2:[address] ([facility]) called stating the patient was admitted for respiratory failure and will be discharging on 02/27/25 due to an insurance cut. Court scheduled hospital follow up with [facility] on 03/01/25. TE sent to nursing TE sent to medical records to obtain hospital records documented in this encounter Plan of Treatment Upcoming Encounters Date Type Department Care Team (Late st Contact Info) Description 03/16/2025 3:45 PM EDT Home Visit [facility] [address] [place] [address] Mag Short DO [address] [place] [address] documented as of this encounter Visit Diagnoses Not on filedocumented in this encounter Additional Health Concerns Assessment Noted Time PHQ-9 Depression Total Score: 20 024 2:18 PM EDT documented as of this encounter Care Teams Automotive Starter Repairer Relationship Specialty Start Date End Date Mag Short DO [address] [place] [address] PCP - General Family Medicine 10/31/23 documented as of this encounter
== END 2025-03-11 12:37 | disposition home or self-care (01) ==
LOC: HO.HVNA 12:36
PROVIDERS: Visit Provider Family Medicine
DX: N18.32 Chronic kidney disease, stage 3b (principal)
CPT/HCPCS: 36415; 80048

== ENCOUNTER 2025-03-31 17:29 | Outpatient (REF) | payer MEDICARE, SELFPAY | END 2025-03-31 17:30 | disposition home or self-care (01) | LOC: HO.HVNA 17:29 | PROVIDERS: Visit Provider Family Medicine | DX: Z53.8 Procedure and treatment not carried out for other reasons (principal) | CPT/HCPCS: 36415 ==

== ENCOUNTER 2025-04-28 17:49 | Outpatient (REF) | payer MEDICARE, SELFPAY ==
--- OUTSIDE RECORDS SUMMARY | 2025-04-28 17:53 | XMS_ITS | Encounter Summary ---
Author Organization [employer] Address 75 [facility] 7t [place] [address] Care Team Providers Care Returned Item Clerk Name Role Phone Mag Short Primary Care Provider [phone] Reason for Visit * Reason Onset Date Comments hospital discharge, obtain hospital records 01/29 Encounter Details Date Type Department Care Team ([facility] st Contact Info) Description 02/24/[address] [facility] MEDICAL [address] [place], [place] [phone] King Mag, DO [address] [place], [place] [phone] hospital discharge, obtain hospital records Social History Tobacco Use Types Packs/Day Years Used Date Smoking Tobacco: Former Cigarettes Passive Smoke Exposure: Never Smokeless Tobacco: Never Alcohol Use Standard Drinks/Week Comments Never 0 (1 standard drink = 0.6 oz pur e alcohol) Alcohol Answer Date Recorded How often do you have a drink containing alcohol ? 0 03/16/2025 How many drinks containing a lcohol do you have on a typical day when you are drinking? 0 03/16/2025 How often do you have six or more drinks on one occasion? 0 03/16/2025 Depression Answer Date Recorded Patient Health Questionnaire-9 Score 20 04/27/2024 Patient Health Questionnaire-9 Score 20 04/27/2024 Last PHQ-9: Questionnaire Data Not on file 0 04/27/2024 Housing Stability Answer Date Recorded What is your housing situation today? I have tone ramos 03/16/[address] you li ve. Do you have problems with any of the following? None of the above 03/16/2025 Food Insecurity Answer Date Recorded Within the past 12 months, y ou worried that your food would run out before you got money to buy more: Never True 03/16/2025 Within the past 12 months,th e food you bought just didn't last and you didn't have enough money to get more: Never True Transportation Answer Date Recorded In the past 12 months, has l ack of transportation kept you from medical appts, meetings, work or from getting things needed for daily living? No 03/16/2025 Intimate Partner Violence Answer Date R ecorded [...] the past 12 months, has t he [employer], gas, oil or water [employer] threatened to shut off services in your home? No 03/16/2025 Depression Answer Date Recorded Patient Health Questionnaire-2 Score 5 03/16/2025 Internet Access Answer Date Recorded Internet Access Q1 Yes 03/16/2025 Internet Access Q2 Not on file 03/16/2025 Comments Unknown Sex and Gender Information Value Date Recorded Sex Assigned at Female 06/10/2023 11:25 AM EDT Legal Sex Female 11:20 AM EDT Gender Identity Female 06/10/2023 11:25 AM EDT Sexual Orientation Straight 06/10/2023 11 :25 AM EDT documented as of this encounter Functional Status * Over the past 2 weeks, how often have you been bothered by any of the following problems? Question Answer Date of Assessment Author Little interest or pleasure in doing things Nearly every day 03/16/2025 3:57 PM EDT Violeta Dubois RMA Feeling down, depressed, or hopeless More than half the days 03/16/2025 3:57 PM EDT Violeta Dubois RMA Patient Health Questionnaire-2 Score 5 03/16/2025 3:57 PM EDT Violeta Dubois R MA * Question Answer Date of Assessment Author Feeling tired or having little energy More than half the days 03/16/2025 3:57 PM EDT Violeta Dubois RMA Poor appetite or overeating More than half the days 03/16/2025 3:57 PM EDT Violeta Dubois RMA Feeling bad about yourself - or that you are a failure or have let yourself or your family down More than half the days 03/16/2025 3:57 PM EDT Violeta Dubois RMA Trouble concentrating on things, such as reading the newspaper or watching television More than half the days 03/16/2025 3:57 PM EDT Violeta Dubois RMA Moving or speaking so slowly that other people could have noticed? Or the opposite - being so fidgety or restless that you have been moving around a lot more than usual. Nearly every day 03/16/2025 3:57 PM EDT Violeta Dubois RMA Thoughts that you would be better off or hurting yourself in some way More than half the days 03/16/2025 3:57 PM EDT Violeta Dubois RMA * If you checked off any problems on this questionnaire so far, Question Answer Date of Assessment Author How difficult have these problems made it for you to do your work, take care of things at home, or get along with other people? Extremely difficult 03/16/2025 3:57 PM EDT Violeta Dubois RMA documented as of this encounter Miscellaneous Notes * Telephone Encounter - Kala Arriaga - 02/24/2025 2:[address] ([facility]) called stating the patient was admitted for [...] Noted Time PHQ-9 Depression Total Score: 20 04/27/ 024 2:18 PM EDT documented as of this encounter Care Teams Returned Item Clerk Relationship Specialty Start Date End Date Mag Short DO [address] [place] [address] PCP - General Family Medicine 10/31/23 documented as of this encounter
--- OUTSIDE RECORDS SUMMARY | 2025-04-28 17:53 | XMS_ITS | Clinical Summary ---
Author Organization [facility], Address [address] [place] [phone] Phone Care Team Providers Care Senior Ecologist Name Role Phone Shon Villafana MD Primary Care Provider [phone] Allergies Active Allergy Reactions Criticality Noted Date [...] Last Done Comments Breast Cancer Screening 1955 Pneumococcal Vaccine: 50+ Years (1 of 2 - PCV) 1973 Colorectal Cancer Screening: Annual FOBT 12/15/2003 Colorectal Cancer Screening: Colonoscopy 12/15/2003 Colorectal Cancer Screening: Sigmoidoscopy 12/15/2003 Diabetes: Pedal Pulse Checked 02/11/2024 Diabetes: Sensory Foot Exam 02/11/2024 Diabetes: Visual Foot Exam 02/11/2024 Diabetes: Hemoglobin A1C 02/09/2025 11/12/2024 Influenza Vaccine (#1) 2025 Diabetes: Ophthalmology Exam 06/24/2025, 05/19/2024 Hepatitis B Vaccine Aged Out No longe r eligible based on patient's age to complete this topic Insurance Medicare [id number] Medicare Care Teams Senior Ecologist Relationship Specialty Start Date End Date Shon Villafana MD [address] PCP - General Internal Medicine 05/29/23
[2025-04-28 18:28] LABS: B Type Natriuretic Peptide 874 pg/mL (<100)
[2025-04-28 18:39] LABS: Anion Gap 14 (12-20); Blood Urea Nitrogen 50 mg/dL (9-16); Calcium 8.6 mg/dL (8.4-10.2); Carbon Dioxide 29 mmol/L (22-29); Chloride 107 mmol/L (96-108); Estimated Glomerular Filt Rate 26; Potassium 4.6 mmol/L (3.3-5.1); Sodium 145 mmol/L (135-145)
== END 2025-04-28 17:50 | disposition home or self-care (01) ==
LOC: HO.LNP 17:49
PROVIDERS: Visit Provider Family Medicine
DX: I12.9 Hypertensive chronic kidney disease with stage 1 through stage 4 chronic kidney disease, or unspecified chronic kidney disease (principal); N18.32 Chronic kidney disease, stage 3b
CPT/HCPCS: 80051; 82310; 82565; 83880; 84100; 84520

== ENCOUNTER 2025-05-19 17:24 | Outpatient (REF) | payer MEDICARE, SELFPAY ==
[2025-05-19 18:17] LABS: Iron 30 mcg/dL (30-160); Percent Iron Saturation 11 % (15-50); Total Iron Binding Capacity 268 mcg/dL (228-428); Unsaturated Iron Binding 238 ug/dL
[2025-05-19 18:31] LABS: Ferritin 68 ng/mL (10-250)
== END 2025-05-19 17:25 | disposition home or self-care (01) ==
LOC: HO.HVNA 17:24
PROVIDERS: Visit Provider Family Medicine
DX: D64.9 Anemia, unspecified (principal)
CPT/HCPCS: 36415; 82728; 83540

== ENCOUNTER 2025-07-22 14:11 | Outpatient (REF) | payer MEDICARE, SELFPAY ==
[2025-07-22 15:10] LABS: Anion Gap 12 (12-20); Blood Urea Nitrogen 69 mg/dL (9-16); Calcium 8.8 mg/dL (8.4-10.2); Carbon Dioxide 28 mmol/L (22-29); Chloride 109 mmol/L (96-108); Estimated Glomerular Filt Rate 22; Potassium 5.6 mmol/L (3.3-5.1); Sodium 143 mmol/L (135-145)
--- OUTSIDE RECORDS SUMMARY | 2025-07-22 18:02 | XMS_ITS | Encounter Summary ---
Author Organization [employer] Address 75 [facility] 7t [place] [address] Care Team Providers Care Brilliandeer Looper Name Role Phone Mag Short DO Primary Care Provider [phone] Encounter Details Date Type Department Care Team (Late st Contact Info) Description 12/17/2023 Orders Only [facility] [address] [place] [address] Mag Short DO [address] [place] [address] Obstructive sleep apnea; Ankit-Morales respiration Social History [...] the past 12 months, has t he [employer], gas, oil or water company threatened to [...] as of this encounter Plan of Treatment Upcoming Encounters Date Type Department Care Team (Late st Contact Info) Description 07/23/2025 1:45 PM EDT Telemedicine [facility] MEDICAL [address] [place] [address] Mag Short DO [address] [place] [address] documented as of this encounter Procedures Procedure [...] (TTE) complete (12/09/2023 9:10 AM EDT) us Hathaway Han DO CV ECHO PROCEDURES Final Resul t * US ABDOMEN, RIGHT UPPER QUADRANT (12/09/2023 9:09 AM EDT) Anatomical Region Laterality Modality Abdomen Ultrasound us Hathaway Han DO IMG US PROCEDURES Final Result * ECG 12 lead (12/08/2023 9:11 AM EDT) us PeacockMag Han DO ECG ORDERABLES Final Result * CT Abdomen Pelvis w/ Contrast (12/08/2023 9:08 AM EDT) Anatomical Region Laterality Modality Body, Pelvis, Abdomen Computed T omography us Hathaway Han DO IMG CT PROCEDURES Final Result * CT Cervical Spine w/o Contrast (12/08/2023 9:07 AM EDT) Anatomical Region Laterality Modality Spine, C-spine Computed Tomogra phy us Hathaway Han DO IMG CT PROCEDURES Final Result * CT Head w/o Contrast (12/08/2023 9:06 AM EDT) Anatomical Region Laterality Modality Head, Neck Computed Tomogra phy us Hathaway Han DO IMG CT PROCEDURES Final Result documented in this encounter Visit Diagnoses Diagnosis Obstructive sleep apnea Obstructive sleep apnea (adult) (pediatric) Ankit-Morales respiration documented in this encounter Additional Health Concerns Assessment Noted Time PHQ-9 Depression Total Score: 17 023 4:01 PM EST documented as of this encounter Care Teams Brilliandeer Looper Relationship Specialty Start Date End Date Mag Short DO [address] [place] [address] [place] [id number] PCP - General Family Medicine 10/31/23 documented as of this encounter
--- OUTSIDE RECORDS SUMMARY | 2025-07-22 18:02 | XMS_ITS | Encounter Summary ---
Author Organization [employer] Address [address] [facility] 7t [place] [address] Care Team Providers Care Plastic Frame Inserter Name Role Phone HanMag Primary Care Provider [phone] Encounter Details Date Type Department Care Team (Late st Contact Info) Description 06/11/2025 Orders Only [facility] [address] [place] [address] King Mag, DO [address] [place] [address] Social History Tobacco Use Types Packs/Day Years [...] the past 12 months, has t he [employer], gas, oil or water company threatened to [...] Info) Description 07/23/2025 1:45 PM EDT Telemedicine [facility] MEDICAL [address] [place] [address] Mag Short DO [address] [place] [address] documented as of this encounter Procedures Procedure Name Priority Date/Time Associated Diagnosis Comments CT HEAD WO CONTRAST Routine 06/10/2025 8:51 AM EDT XR CHEST PORTABLE Routine 06/10/2025 8:50 AM EDT ECG 12-LEAD Routine 06/10/2025 8:50 AM EDT documented in this encounter Results * CT HEAD WO CONTRAST (06/10/2025 8:51 AM EDT) Anatomical Region Laterality Modality Computed Tomogra phy us PeacockMag Han DO IMG CT PROCEDURES Final Result * XR Chest Portable (06/10/2025 8:50 AM EDT) Anatomical Region Laterality Modality Radiographic Jamee ging us Hathaway Han DO IMG XR PROCEDURES Final Result * ECG 12 lead (06/10/2025 8:50 AM EDT) Result Pastor Short DO ECG ORDERABLES Final Result documented in this encounter Visit Diagnoses Not on filedocumented in this encounter Additional Health Concerns Assessment Noted Time PHQ-9 Depression Total Score: 20 04/27/ 024 2:18 PM EDT documented as of this encounter Care Teams Plastic Frame Inserter Relationship Specialty Start Date End Date Mag Short DO [address] [place] [address] PCP - General Family Medicine 10/31/23 documented as of this encounter
--- OUTSIDE RECORDS SUMMARY | 2025-07-22 18:02 | XMS_ITS | Encounter Summary ---
Author Organization [facility] Address [address] [place] [address] Phone Care Team Providers Care Foreign Food Cook Specialty Name Role Phone Mag Short Primary Care Provider [phone] Encounter Details Date Type Department Care Team (Late st Contact Info) Description 01/06/2025 Documentation Only [facility], [address] [place] [address] Kathya [place] [address] [place] [phone] Social History Tobacco Use Types Packs/Day Years Used Date Smoking Tobacco: Never Assessed Comments Unknown Sex and Gender Information Value Date Recorded Sex Assigned at Not on file Legal Sex Female 10:36 AM EDT Gender Identity Not on file Sexual Orientation Not on file documented as of this encounter Plan of Treatment Not on file documented as of this encounter Visit Diagnoses Not on filedocumented in this encounter Care Teams Foreign Food Cook Specialty Relationship Specialty Start Date End Date Mag Short [address] [place] [address] PCP - General 05/20/25 documented as of this encounter
--- OUTSIDE RECORDS SUMMARY | 2025-07-22 18:02 | XMS_ITS | Clinical Summary ---
Author Organization [employer] Address [address] [facility] [address] [place] [address] Care Team Providers Care Lunchroom Operator Name Role Phone Mag Short DO Primary Care Provider [phone] Allergies Active Allergy Reactions Criticality Noted Date [...] daily in the morning 1 each Active Misc. Devices (Bed Wedge) miscIndications:C hronic diastolic heart failure (HCC) Use nightly to sleep with head at 30% incline. Duration 99. Active Misc. Devices (Home Style Bed Rails) miscIndications:C hronic diastolic heart failure (HCC),Generalized weakness Use for assistance transferring to/from bed. Duration 99. Active Misc. Devices (Raised Toilet Seat/Lock & Arms) miscIndications:C hronic diastolic heart failure (HCC),Generalized weakness Use on toilet to prevent falls. Duration 99 Active ipratropium (Atrovent) 0.03 % nasal sprayIndications: Nasal congestion Administer 1 spray into each nostril if needed at bedtime (nasal congestion). 30 mL Active atorvastatin (Lipitor) 20 MG tabletIndications :Type 2 diabetes mellitus with diabetic polyneuropathy, without long-term current use of insulin (HCC),Hyperlipide monika, unspecified hyperlipidemia type TAKE 1 TABLET(20 MG) BY MOUTH IN THE MORNING 30 tablet 11 Active glipiZIDE XL (Glucotrol XL) 10 MG 24 hr tabletIndications :Type 2 diabetes mellitus with diabetic polyneuropathy, without long-term current use of insulin (HCC) TAKE 1 TABLET(10 MG) BY MOUTH IN THE MORNING 30 tablet Active Jardiance 10 MGIndications:Typ e 2 diabetes mellitus with diabetic polyneuropathy, without long-term current use of insulin (HCC) TAKE 1 TABLET BY MOUTH DAILY IN THE MORNING 30 tablet Active Blood Glucose Monitoring Suppl (Blood Glucose Monitor System) w/Device kitIndications:Ty pe 2 diabetes mellitus with diabetic polyneuropathy, without long-term current use of insulin (HCC) Use daily or as directed for monitoring of diabetes. 1 kit Active glucose blood test stripIndications: Type 2 diabetes mellitus with diabetic polyneuropathy, without long-term current use of insulin (HCC) Use once daily to check blood sugar. 100 each 025 2025 Active carvedilol (Coreg) 12.5 MG tabletIndications :Chronic diastolic heart failure (HCC) Take 0.5 tablets (6.25 mg) by mouth 2 times daily. 90 tablet 3 025 2025 Active sertraline (Zoloft) 100 MG tabletIndications :Mixed anxiety and depressive disorder Take 1 tablet (100 mg) by mouth Once per day. 90 tablet 1 Active Elastic Bandages & Supports (Lumbar Back Brace/Support Pad) miscIndications:T runcal muscle weakness,Chronic bilateral low back pain, unspecified whether sciatica present Use daily as needed for lumbar stabilization 1 each Active gabapentin (Neurontin) 300 MG capsuleIndication s:Polyneuropathy associated with underlying disease (CMS/HCC) TAKE 1 CAPSULE(300 MG) BY MOUTH THREE TIMES DAILY 90 capsule 5 Active Diclofenac Sodium 1 % gel Apply 2 g topically if needed (arthritis). Active hydrALAZINE (Apresoline) 25 MG tablet Take 1 tablet (25 mg) by mouth every 12 hours as needed. Take if systolic blood pressure is greater than 160. 60 tablet 11 Active apixaban (Eliquis) 5 MG tabletIndications :Chronic diastolic heart failure (HCC) Take 1 tablet (5 mg) by mouth 2 times daily. 60 tablet 11 025 2025 Active NIFEdipine CC (Adalat CC) 30 MG 24 hr tabletIndications :Primary hypertension Take 1 tablet (30 mg) by mouth Once per day. 30 tablet 5 025 2025 Active furosemide (Lasix) 20 MG tabletIndications :Peripheral edema Take 3 tablets (60 mg) by mouth Once per day. 90 tablet 11 025 2025 Active lisinopril 10 MG tabletIndications :Primary hypertension Take 1 tablet (10 mg) by mouth Once per day. 30 tablet 5 025 2025 Active ferrous sulfate (Fe Tabs) 325 (65 Fe) MG EC tabletIndications :Anemia, unspecified type Take 1 tablet (325 mg) by mouth every other day. Do not crush, chew, or split. 45 tablet 3 025 2025 Active traZODone (Desyrel) 100 MG tabletIndications :Sleep disturbance TAKE 1 TABLET(100 MG) BY MOUTH AT BEDTIME NEEDED FOR SLEEP 30 tablet 11 Active traZODone (Desyrel) 100 MG tabletIndications :Sleep disturbance Take 1 tablet (100 mg) by mouth if needed at bedtime for sleep. 30 tablet 11 024 2024 Discontinued Active Problems Problem Noted Date Diagnosed Date Paroxysmal atrial fibrillation (CMS/HCC) Proliferative diabetic retin opathy associated with type [...] Referral placed for management of OG to [facility] sleep program. Pt prefers [facility]. Currently treated with trazodone for insomnia, discuss w/ sleep medicine re- ongoing therapy may suggest weaning off. Weakness of both hands 12/21/2023 Partial thenar atrophy 12/21/2023 Assessment & Plan (12/21/2023 7:11 PM EDT): Thenar atrophy with weakness and numbness concerning for advancing carpal tunnel syndrome. Refer to hand surgery for evaluation Finger numbness 12/21/2023 Stage 3 chronic kidney disease (CMS/HCC) 024 Assessment & Plan (12/21/2023 7:15 PM EDT): [...] and sex. Testing performed or reported by [facility], a Service of [facility], [address] [place] [address] Rogelio Vinson MD, Careers Counsellor [facility]# [id number] Declining renal function Hyperlipidemia 10/25/2023 10/25/2023 Hypertension 10/25/2023 10/25/2023 Assessment & Plan (12/21/2023 7:05 PM EDT): Restart amlodipine at 5 mg daily. Follow up 1 week for nursing BP check Mitral valve stenosis 10/25/2023 Pulmonary hypertension (CMS/HCC) 10/25/2023 Chronic combined systolic and diastolic heart [...] sertraline. Return precautions reviewed, pt aware of [facility] crisis line, if having worsening thoughts of [...] in >4y. She was recently seen at [facility] in March when she was not [...] Encounters Date Type Department Care Team Description 07/22/[address] [address] Mag Short DO VNA 07/19/[address] [address] Mag Short DO VNA; verbal Orders 07/18/[address] [address] Mag Short DO Sleep disturbance 07/13/[address] [address] Mag Short DO VNA; Care Coordination 06/29/2025 Orders Only [facility] [address] [place] [address] Mag Short DO 06/11/2025 Orders Only [facility] [address] [place] [address] Mag Short DO 06/11/[address] [address] Mag Short DO Care Coordination; Hospital Follow-up 06/10/[address] [address] Mag Short DO Prior Authorization (Zofran generic) 06/07/[address] [facility] MED[facility] [address] [place] [address] Mag Short DO Vomiting; bilateral leg swelling; Fatigue 06/07/[address] [address] Mag Short DO BP update from VNA and checking on new script request; VNA; New Med Request 05/20/2025 Results Follow-Up [address] [address] Mag Short DO Iron, TIBC And Ferritin Panel [ [id number]] 05/12/[address] [address] Mag Short DO VNA 04/21/[address] [address] Mag Short DO from Last 3 Months Family History Medical [...] Answer Date Recorded Patient Health Questionnaire-9 Score 04/27/2024 Patient Health Questionnaire-9 Score 04/27/2024 Last PHQ-9: Questionnaire Data Not on [...] 61 06/12/2024 2:38 PM EDT Temperature 36.8 C (98.3 F) 06/12/2024 2:38 PM EDT Respiratory Rate 24 08/08/2023 3:54 PM EST Oxygen Saturation 93% 11/29/2023 11:49 AM EST Inhaled Oxygen Concentration - - Weight 85.9 kg (189 lb 6.4 oz) 06/12/2024 2:38 P M EDT Height 152.4 cm (5') 06/12/2024 2:38 PM EDT Body Mass Index 36.99 06/12/2024 2:38 PM EDT Plan of Treatment Upcoming Encounters Date Type Department Care Team (Late st Contact Info) Description 07/23/2025 1:[address] [facility] MEDICAL [address] [place], [place] [phone] Mag Short DO [address] [place] [address] Health Maintenance Due Date Last Done Comments CT Colonography 1954 Colonoscopy 1954 Colorectal Cancer Screening 1954 FIT DNA/Cologuard 1954 FIT 1954 FOBT 1954 Sigmoidoscopy 1954 Diabetes: Foot Exam 1964 Hepatitis C Screening 1972 DTaP/Tdap/Td Vaccines (1 - Tdap) 1973 Diabetes: Urine Protein Screening 1973 Pneumococcal Vaccine: 50+ Years (1 of 2 - PCV) 1973 Mammogram 1994 Zoster Vaccines (1 of 2) 2004 RSV Patients and Patients Aged 60 years or older (1 - Risk 60-74 years 1-dose series) 2014 Diabetes: Hemoglobin A1C 02/09/2025 025, 06/12/2024, 11/28/2023 COVID-19 Vaccine (1 - season) 2025 Influenza Vaccine (#1) 2025 12/29/2024 Eye Exam 06/24/2025 06/24/2024, 05/01, 05/19/2024, Additional history exists Depression Monitoring 09/15/2025 03/16/2025, 024 Lipid Panel 11/12/2025 11/12/2024, 11/28/2023 Tobacco Screening 03/04/2026 03/04/2025 Alcohol/Substance Use Screening 03/16/2026 03/16/2025 SDOH Screening 03/16/2026 03/16/2025 HIB Vaccines Aged Out No longer eligi [...] patient's age to complete this topic Meningococcal B Vaccine Aged Out No l onger eligible based on patient's age to complete [...] Procedure Name Priority Date/Time Associated Diagnosis Comments XR CHEST PORTABLE Routine 06/19/2025 9:0 0 AM EDT XR CHEST PORTABLE Routine 06/18/2025 9:0 0 AM EDT ECG 12-LEAD Routine 06/15/2025 9:02 AM EDT ECG 12-LEAD Routine 06/14/2025 9:01 AM EDT XR CHEST PORTABLE Routine 06/14/2025 8:5 9 AM EDT MRI BRAIN WO CONTRAST Routine 06/13/2025 8:59 AM EDT TRANSTHORACIC ECHO (TTE) COMPLETE Routine 06/11/2025 8:58 AM EDT CBC WITH AUTO DIFFERENTIAL Routine 06/10/2025 9:[address] ANGIOGRAM CHEST INTERPRETATION Routine 06/10/2025 8:[address] HEAD WO CONTRAST Routine 06/10/2025 8 :51 AM EDT XR CHEST PORTABLE Routine 06/10/2025 8:5 0 AM EDT ECG 12-LEAD Routine 06/10/2025 8:50 AM EDT IRON, TIBC AND FERRITIN PANEL Routine 05/19/2025 Anemia, unspecified type B TYPE NATRIURETIC PEPTIDE (BNP) Routine 04/28/2025 Peripheral edema RENAL FUNCTION PANEL Routine 04/28/2025 Peripheral edema HEMOGLOBIN A1C Routine 11/12/2024 Type 2 diabetes mellitus with diabetic polyneuropathy, without long-term current use of insulin ([facility]) LIPID PANEL, STANDARD Routine 11/12/2024 Type 2 diabetes mellitus with diabetic polyneuropathy, without long-term current use of insulin ([facility]) AMB REFERRAL TO OPHTHALMOLOGY Routine 06/24/2024 Proliferative diabetic retinopathy of both eyes with macular edema associated with diabetes mellitus due to underlying condition ([facility]) from Last 3 Months or Most Recently Relevant to Health Maintenance Results * XR Chest Portable (06/19/2025 9:00 AM EDT) Only the most recent of4 resultswithin the time period is included. Anatomical Region Laterality Modality Radiographic Jamee ging [facility] DO IMG XR PROCEDURES Final Result * ECG 12 lead (06/15/2025 9:02 AM EDT) Only the most recent of3 resultswithin the time period is included. [facility] DO ECG ORDERABLES Final Result * MRI BRAIN WO CONTRAST (06/13/2025 8:59 AM EDT) Anatomical Region Laterality Modality Magnetic Resonan ce [facility] DO IMG MRI PROCEDURES Final Resul t * Transthoracic echo (TTE) complete (06/11/2025 8:58 AM EDT) [facility] DO CV ECHO PROCEDURES Final Resul t * CBC auto differential (06/10/2025 9:03 AM EDT) Blood Venous blood specimen / Unknown [facility] DO LAB BLOOD ORDERABLES Final Res ult * CT angiogram chest interpretation (06/10/2025 8:58 AM EDT) Anatomical Region Laterality Modality Computed Tomogra phy us Mag Han DO IMG CT PROCEDURES Final Result * CT HEAD WO CONTRAST (06/10/2025 8:51 AM EDT) Anatomical Region Laterality Modality Computed Tomogra phy us Mag Han DO IMG CT PROCEDURES Final Result * Iron, TIBC And Ferritin Panel [ [id number]] (05/19/2025) Blood Venous blood specimen / Unknown Mga Short DO LAB BLOOD ORDERABLES Final Res ult Performing Organization Address City/[facility] Co de Phone Number EXTERNAL LAB * B Type Natriuretic Peptide (BNP) [id number] (04/28/2025) Blood Venous blood specimen / Unknown [facility] LAB BLOOD ORDERABLES Final Res ult Performing Organization Address City/[facility]/ZIP Co de Phone Number EXTERNAL LAB * Renal Function Panel (04/28/2025) Blood Venous blood specimen / Unknown [facility] LAB BLOOD ORDERABLES Final Res ult EXTERNAL LAB * Hemoglobin A1c (11/12/2024) Blood Venous blood specimen / Unknown [employer] DO LAB BLOOD ORDERABLES Final Res ult [facility] [address] [place] [address], * Lipid Panel, Standard (11/12/2024) Blood Venous blood specimen / Unknown Mag Short DO LAB BLOOD ORDERABLES Final Res ult [facility] [address] [place] [address], * Referral to Ophthalmology (06/24/2024) Ozzy Patito REAVES OUTPATIENT REFERRAL ORDERABLES Final Result from Last 3 Months or Most Recently Relevant to Health Maintenance Insurance [facility] MEDICARE REPLACEMENT Care Teams Lunchroom Operator Relationship Specialty Start Date End Date Mag Short DO [address] [place] [address] PCP - General Family Medicine 10/31/23
--- OUTSIDE RECORDS SUMMARY | 2025-07-22 18:02 | XMS_ITS | Clinical Summary ---
Author Organization [facility] Address [address] [place] [address] Phone Care Team Providers Care Seismograph Supervisor Name Role Phone Mag Short Primary Care Provider [phone] Allergies Active Allergy Reactions Criticality Noted Date [...] nerve root 04/08/2024 Chronic back pain 04/08/2024 Encounters Date Type Department Care Team Description 05/20/2025 Documentation Only [facility] [address] [place] [address] Staci Goyal MA 05/20/2025 Telephone [facility] [address] [address] Staci Goyal MA from Last 3 Months Social History Tobacco Use Types Packs/Day Years [...] patient's age to complete this topic Insurance [facility] Medicare [facility] Medicare Care Teams Seismograph Supervisor Relationship Specialty Start Date End Date Mag Short [address] [place] [address] PCP - General 05/20/25
--- OUTSIDE RECORDS SUMMARY | 2025-07-22 18:02 | XMS_ITS | Encounter Summary ---
Author Organization [employer] Address [address] [facility] 7t [place] [address] Care Team Providers Care Automotive Window Tinter Name Role Phone Mag Short Primary Care Provider Reason for Visit * Reason Comments Med Refill Encounter Details Date Type Department Care Team ([facility] st Contact Info) Description 07/18/2025 Refill [facility] MEDICAL [address] [place] [address] Mag Short DO [address] [place] [address] Sleep disturbance Social History Tobacco Use Types Packs/Day Years [...] the past 12 months, has t he [employer], gas, oil or water company threatened to [...] Info) Description 07/23/2025 1:45 PM EDT Telemedicine [facility] [address] [place] [address] Mag Short DO [address] [place] [address] documented as of this encounter Visit Diagnoses Diagnosis Sleep disturbance Unspecified sleep disturbance documented in this encounter Additional Health Concerns Assessment Noted Time PHQ-9 Depression Total Score: 20 024 2:18 PM EDT documented as of this encounter Care Teams Automotive Window Tinter Relationship Specialty Start Date End Date Mag Short DO [address] [place] [address] PCP - General Family Medicine 10/31/23 documented as of this encounter
--- OUTSIDE RECORDS SUMMARY | 2025-07-22 18:02 | XMS_ITS | Encounter Summary ---
Author Organization [employer] Address [address] [facility] [address] [place] [address] Care Team Providers Care Spectrographic Analyst Name Role Phone Mag Short DO Primary Care Provider [phone] Encounter Details Date Type Department Care Team (Late st Contact Info) Description 10/16/[address] [facility] [address] [place] [address] Olivia James PA Social History Tobacco Use [...] Description 07/23/2025 1:[address] [facility] MEDICAL [address] [place] [address] Mag Short [address] [place] [address] documented as of this encounter Procedures Procedure Name Priority Date/Time Associated Diagnosis Comments TRANSESOPHAGEAL ECHO (IBAN) Routine 10/08/2023 VAS US RENAL ARTERY DUPLEX LIMITED Routine 10/02/2023 [...] documented as of this encounter Care Teams Spectrographic Analyst Relationship Specialty Start Date End Date Mag Short DO [address] [place] [address] PCP - General Family Medicine 10/31/23 documented as of this encounter
--- OUTSIDE RECORDS SUMMARY | 2025-07-22 18:02 | XMS_ITS | Encounter Summary ---
Author Organization [employer] Address [address] [facility] [address]t [place] [address] Care Team Providers Care Jack Prizer Name Role Phone Mag Short Primary Care Provider [phone] Reason for Visit * Reason Onset Date Comments VNA 07/19/2025 verbal Orders 07/19/2025 Encounter Details Date Type Department Care Team ([facility] Contact Info) Description 07/19/[address] [facility] MEDICAL [address] [place] [address] Mag Short DO [address] [place] [address] VNA; verbal Orders Social History Tobacco Use Types Packs/Day Years [...] the past 12 months, has t he [employer], gas, oil or water [employer] threatened to shut off services in your [...] * Telephone Encounter - Kala Arriaga - 07/21/2025 3:13 PM EDT Patient called back for nursing. Nursing unavailable. Patient states she is unable to read her med list and confirmed her telehealth appointment with [facility] (07/21/25). * Telephone Encounter - Joanne Del Castillo LPN - 07/21/2025 12:35 PM EDT Called Eva back - She tests her BS every AM because she has short acting insulin. Eva is driving and could not go over med list. She will call back to discuss. She did say that she thought the discharge paperwork said that all the BP medication was Dc'd * Telephone Encounter - Mag Short DO - 07/21/2025 12:03 PM EDT Bedtime insulin (Lantus/glargine) is 10 units nightly at bedtime. They should check AM blood glucose every morning and log this. We will titrate as needed. Will discuss additional concerns tomorrow at appointment. Nursing please reconcile her medications * Telephone Encounter - Kavita Mckeon LPN - 07/19/2025 3:46 PM EDT Please review and advise * Telephone Encounter - Nuha Bennett - 07/19/2025 3:09 PM EDT Vna called regarding the patient Vna saw patient today and admitted her for services Please call back to provide Verbal orders for shelter Patient is taking the following medication wrong Gabapentin Patient is interested in stopping this med and try something different like tramadol Patient is interested in trying a continues glucometer since she is now on insulin What are we doing for the bedtime dose for her insulin? What is the range to look for Discharged summary was very vague so miguel would like us to clarify this Patients hospital follow up which is scheduled for 07/23 was changed to a telehealth appointment due to the fact the patient is unable to leave her house at this time documented in this encounter Plan of Treatment Upcoming Encounters Date Type Department Care Team (Late st Contact Info) Description 07/23/2025 1:[address] [facility] MEDICAL [address] [place] [address] Mag Short DO [address] [place] [address] documented as of this encounter Visit Diagnoses Not on filedocumented in this encounter Additional Health Concerns Assessment Noted Time PHQ-9 Depression Total Score: 20 024 2:18 PM EDT documented as of this encounter Care Teams Jack Prizer Relationship Specialty Start Date End Date Mag Short DO [address] [place] [address] PCP - General Family Medicine 10/31/23 documented as of this encounter
--- OUTSIDE RECORDS SUMMARY | 2025-07-22 18:02 | XMS_ITS | Encounter Summary ---
Author Organization [employer] Address [address] [facility] [address]t [place] [address] Care Team Providers Care Vp Research Name Role Phone Mag Short Primary Care Provider [phone] Reason for Visit * Reason Onset Date Comments VNA 07/22/2025 Encounter Details Date Type Department Care Team ([facility] Contact Info) Description 07/22/2025 Telephone [place] [facility] [address] [place] [address] King Mag, DO [address] [place] [address] VNA Social History Tobacco Use Types Packs/Day [...] the past 12 months, has t he [employer], gas, oil or water [employer] threatened to shut off services in your [...] encounter Miscellaneous Notes * Telephone Encounter - Nuha Bennett - 07/22/2025 11:34 AM EDT Wolf saw patient today Blood pressure is still elevated provide 2 blood pressure tablets to patient yesterday for this BP at visit today was 140/70 HR at visit today was under 60 Patient has not taken any insulin since coming home from the hospital and has expressed she no longer wishes to take this medication Glucose at visit today was 97 documented in this encounter Plan of Treatment Upcoming Encounters Date Type Department Care Team (Late st Contact Info) Description 07/23/2025 1:45 PM EDT Telemedicine [facility] MEDICAL [address] [place] [address] Mag Short DO [address] [place] [address] documented as of this encounter Visit Diagnoses Not on filedocumented in this encounter Additional Health Concerns Assessment Noted Time PHQ-9 Depression Total Score: 20 024 2:18 PM EDT documented as of this encounter Care Teams Vp Research Relationship Specialty Start Date End Date Mag Short DO [address] [place] [address] PCP - General Family Medicine 10/31/23 documented as of this encounter
--- OUTSIDE RECORDS SUMMARY | 2025-07-22 18:02 | XMS_ITS | Encounter Summary ---
Author Organization [employer] Address [address] [facility] 7t [place] [address] Care Team Providers Care Fermenting Cellars Receiver Name Role Phone Mag Short Primary Care Provider [phone] Reason for Visit * Reason Onset Date Comments Care Coordination 06/11/2025 Hospital Follow-up 06/11/2025 Encounter Details Date Type Department Care Team ([facility] st Contact Info) Description 06/11/2025 Telephone [facility] MEDICAL [address] [place] [address] Mag Short DO [address] [place] [address] Care Coordination; Hospital Follow-up Social History Tobacco Use Types Packs/Day Years [...] Telephone Encounter - Anna Carroll LPN - 06/29/2025 9:57 AM EDT Call placed to patient's to discuss recent admission/hospitalization and offer office visit. Date of hospitalization: 06/10/25 Discharge date: 06/28/25 Hospital: [facility] transferred to [facility] Records on file: yes Discharge diagnosis: acute on chronic heart failure, acute kidney injury, hypothermia, acute hypoxic respiratory failure Patient described events as: increased swelling in legs, decreased responsiveness, O2 sat 50 %. Follow-up scheduled: Pt was transferred to [facility] in [place]. No plansfor discharge at this time. Flow sheet completed. * Telephone Encounter - Anna Carroll LPN - 06/29/2025 9:47 AM EDT Images from the original note were not included. Anna Oreilly to [facility] SS 06/29/25 9:04 AM Pt discharged, records scanned. * Telephone Encounter - Nuha Bennett - 06/11/2025 8:41 AM EDT Patients called Patient is currently inpatient at [facility] ICU Patient was taken to the hospital yesterday due to trouble breathing and low oxygen Please obtain medical records documented in this encounter Plan of Treatment Upcoming Encounters Date Type Department Care Team (Late st Contact Info) Description 07/23/2025 1:45 PM EDT Telemedicine [facility] MEDICAL [address] [place] [address] Mag Short DO [address] [place] [address] documented as of this encounter Visit Diagnoses Not on filedocumented in this encounter Additional Health Concerns Assessment Noted Time PHQ-9 Depression Total Score: 20 024 2:18 PM EDT documented as of this encounter Care Teams Fermenting Cellars Receiver Relationship Specialty Start Date End Date Mag Short DO [address] [place] [address] PCP - General Family Medicine 10/31/23 documented as of this encounter
--- OUTSIDE RECORDS SUMMARY | 2025-07-22 18:02 | XMS_ITS | Encounter Summary ---
Author Organization [employer] Address [address] [facility] 7t [place] [address] Care Team Providers Care Technician Submarine Cable Equipment Name Role Phone HanMag Primary Care Provider [phone] Encounter Details Date Type Department Care Team (Late st Contact Info) Description 06/29/2025 Orders Only [facility] [address] [place] [address] King Mag, DO [address] [place] [address] Social History Tobacco Use Types Packs/Day Years [...] the past 12 months, has t he [employer], gas, oil or water company threatened to [...] Info) Description 07/23/2025 1:45 PM EDT Telemedicine [facility] MEDICAL [address] [place] [address] Mag Short DO [address] [place] [address] documented as of this encounter Procedures Procedure [...] AM EDT CBC WITH AUTO DIFFERENTIAL Routine 06/10 9:[address] ANGIOGRAM CHEST INTERPRETATION Routine 06/10/2025 8:58 AM EDT documented in this encounter Results * XR Chest Portable (06/19/2025 9:00 AM EDT) Anatomical Region Laterality Modality Radiographic Jamee ging us Mag Han DO IMG XR PROCEDURES Final Result * XR Chest Portable (06/18/2025 9:00 AM EDT) Anatomical Region Laterality Modality Radiographic Jamee ging us Hathaway Han DO IMG XR PROCEDURES Final Result * ECG 12 lead (06/15/2025 9:02 AM EDT) [facility] ORDER[facility]LES Final Result * ECG 12 lead (06/14/2025 9:01 AM EDT) [facility] Final Result * XR Chest Portable (06/14/2025 8:59 AM EDT) Anatomical Region Laterality Modality Radiographic Jamee ging Mag Han DO IMG XR PROCEDURES Final Result * MRI BRAIN WO CONTRAST (06/13/2025 8:59 AM EDT) Anatomical Region Laterality Modality Magnetic Resonan ce [facility] IMG MRI PROCEDURES Final Resul t * Transthoracic echo (TTE) complete (06/11/2025 8:58 AM EDT) Mag Han DO CV ECHO PROCEDURES Final Resul t * CBC auto differential (06/10/2025 9:03 AM EDT) Blood Venous blood specimen / Unknown Mag Short DO LAB BLOOD ORDERABLES Final Res ult * CT angiogram chest interpretation (06/10/2025 8:58 AM EDT) Anatomical Region Laterality Modality Computed Tomogra phy Mag Short DO IMG CT PROCEDURES Final Result documented in this encounter Visit Diagnoses Not on filedocumented in this encounter Additional Health Concerns Assessment Noted Time PHQ-9 Depression Total Score: 20 024 2:18 PM EDT documented as of this encounter Care Teams Technician Submarine Cable Equipment Relationship Specialty Start Date End Date Mag Short DO [address] [place] [address] PCP - General Family Medicine 10/31/23 documented as of this encounter
--- OUTSIDE RECORDS SUMMARY | 2025-07-22 18:02 | XMS_ITS | Encounter Summary ---
Author Organization [employer] Address [address] [facility] 7t [place] [address] Care Team Providers Care Internetworking Technician Name Role Phone Mag Short DO Primary Care Provider [phone] Reason for Visit * Reason Onset Date Comments VM for refills 08/01/2023 Encounter Details Date Type Department Care Team ([facility] Contact Info) Description 08/01/[address] [facility] [place] MEDICAL [address] [place] [address] Olivia James PA VM for refills Social History [...] MG tablet amLODIPine (Norvasc) 10 MG tablet [id number] & [address] [id number] * Telephone Encounter - Shelley Posadas - 08/01/2023 10:23 AM EDT Patient called and left senior telecommunications engineer center Wed for refills and did not list them so I called her to get them. documented in this encounter Plan of Treatment Upcoming Encounters Date Type Department Care Team (Late st Contact Info) Description 07/23/2025 1:[address] [facility] [place] MEDICAL [address] [place] [address] Mag Short DO [address] [place] [address] documented as of this encounter Visit Diagnoses Not on filedocumented in this encounter Additional Health Concerns Assessment Noted Time PHQ-9 Depression Total Score: 17 023 3:06 PM EDT documented as of this encounter Care Teams Internetworking Technician Relationship Specialty Start Date End Date Mag Short DO [address] [place] [address] PCP - General Family Medicine 10/31/23 documented as of this encounter
--- OUTSIDE RECORDS SUMMARY | 2025-07-22 18:02 | XMS_ITS | Encounter Summary ---
Author Organization [facility], Address [address] [place] [address] Phone Care Team Providers Care Rn Social Work Name Role Phone Mag Short Primary Care Provider [phone] Encounter Details Date Type Department Care Team (Late st Contact Info) Description 05/20/2025 Documentation Only [facility], [address] [place] [address] [place], [place] [address] [place] [address] Social History Tobacco Use Types Packs/Day Years [...] on filedocumented in this encounter Care Teams Rn Social Work Relationship Specialty Start Date End Date Mag Short [address] [place] [address] PCP - General 05/20/25 documented as of this encounter
--- OUTSIDE RECORDS SUMMARY | 2025-07-22 18:02 | XMS_ITS | Encounter Summary ---
Author Organization [employer] Address [address] [facility] 7 [place] [address] Care Team Providers Care Siderographist Name Role Phone Mag Short DO Primary Care Provider [phone] Reason for Referral * Imaging (Routine) - Closed Specialty Diagnoses / Procedures Referred By Francisca carr Referred To Contact Diagnoses Obstructive sleep apnea Ankit-Morales respiration Procedures Polysomnography Mag Short DO [address] [place] [address] Phone: tel: [facility]: [facility] Phone: tel: fax: Referral ID Status Reason Start Date Expiration Date Visits Re quested Visits Authorized [id number] Closed 12/09/2023 12/08/2024 1 1 Encounter Details Date Type Department Care Team (Late st Contact Info) Description 12/03/2023 Orders Only [facility] MEDICAL [address] [place] [address] Mag Short DO [address] [place] [address] Obstructive sleep apnea (Primary Dx); Pulmonary hypertension [...] your housing situation today? I have tone rachel 07/27/[address] you li [...] Info) Description 07/23/2025 1:45 PM EDT Telemedicine [facility] MEDICAL [address] [place] [address] Mag Short DO [address] [place] [address] documented as of this encounter Procedures Procedure Name Priority Date/Time Associated Diagnosis Comments POLYSOMNOGRAM Routine 11/27/2023 Pulmonary hypertension (CMS/HCC) Sleep disturbance documented in this encounter Results * Polysomnography (01/19/2024) Mag Short [facility] ORDERABLES Final Result * Polysomnography (11/27/2023) Mag Short [facility] ORDERABLES Final Result documented in this encounter Visit Diagnoses Diagnosis Obstructive sleep apnea- Primary Obstructive sleep apnea (adult) (pediatric) Pulmonary hypertension (CMS/HCC) (HCC) Other chronic pulmonary heart diseases Sleep disturbance Unspecified sleep disturbance Ankit-Morales respiration documented in this encounter Additional Health Concerns Assessment Noted Time PHQ-9 Depression Total Score: 17 023 4:01 PM EST documented as of this encounter Care Teams Siderographist Relationship Specialty Start Date End Date Mag Short DO [address] [place] [address] PCP - General Family Medicine 10/31/23 documented as of this encounter
== END 2025-07-22 14:12 | disposition home or self-care (01) ==
LOC: HO.HVNA 14:11
PROVIDERS: Visit Provider Family Medicine
DX: N18.4 Chronic kidney disease, stage 4 (severe) (principal)
CPT/HCPCS: 36415; 80048

== ENCOUNTER 2025-08-02 14:00 | Outpatient (REF) | payer MEDICARE, SELFPAY ==
[2025-08-02 14:44] LABS: Anion Gap 10 (12-20); Blood Urea Nitrogen 62 mg/dL (9-16); Calcium 8.4 mg/dL (8.4-10.2); Carbon Dioxide 29 mmol/L (22-29); Chloride 106 mmol/L (96-108); Estimated Glomerular Filt Rate 22; Potassium 4.4 mmol/L (3.3-5.1); Sodium 141 mmol/L (135-145)
== END 2025-08-02 14:01 | disposition home or self-care (01) ==
LOC: HO.HVNA 14:00
PROVIDERS: Visit Provider Family Medicine
DX: E87.5 Hyperkalemia (principal)
CPT/HCPCS: 36415; 80048